=== PATIENT | female | born 1960 | race Caucasian/White ===

== ENCOUNTER 2017-09-29 15:35 | Emergency (ER) | payer MEDICARE, SELFPAY ==
[2017-09-29 15:52] VITALS: BP 170/113; PULSE 75; RESP 20; TEMP 36.6; O2SAT 95; BMI 30.9
--- NOTE | 2017-09-29 16:03 | HMH.EDUTC ---
[facility] [place] Clinical Impression: Otitis externa Qualifiers: Otitis externa type: unspecified type Chronicity: unspecified Laterality: right Qualified Code(s): H60.91 - Unspecified otitis externa, right ear Disposition: Home, Self-Care Condition on Discharge: Good Instructions: Otitis Externa, DI for Otitis Externa Additional Instructions: Use drops as prescribed Follow up with Family doctor if no improvement Make sure to wick drops into ear as shown in the [facility] today Over the counter Motrin or Tylenol as needed for fever or pain Follow up with Dr Barajas Return if needed Prescriptions: Ofloxacin [Floxin 0.3% OTIC Solution 5mL] 10 drops OT DAILY 7 Days #1 bottle Referrals: Jose Antonio Barajas MD [Physician] - Time of Disposition: 16:18 Medical Decision Making Vital Signs: 09/29/17 15:52 Temperature 97.9 F Temperature Source Temporal Artery Scan Pulse Rate [Brachial] 75 Respiratory Rate 20 Blood Pressure [Left Arm] 170/113 Blood Pressure Mean [Left Arm] 132 Blood Pressure Source [Left Arm] Automatic Cuff Blood Pressure Position [Left Arm] Sitting 02 Sat by Pulse Oximetry 95 Oxygen Delivery Method Room Air - Abner Inquiry Pt receiving controlled substance: No Abner was queried for this patient: No [facility] [place] - General Stated complaint: Right ear pain with drainage Mode of Arrival: Ambulatory Source of Information: Patient Limitations: No Limitations Description of Symptoms (Recalled from Triage Doc. by RN): RT EAR DRAINAGE AND PAIN X 2 WEEKS, FACE IS NOW HURTING HEENT Symptoms (Recalled from RN notes): Yes Resp Symptoms (Recalled from RN notes): No Skin Symptoms (Recalled from RN notes): No MS Symptoms (Recalled from RN notes): No Functional Status (Recalled from RN notes): NA - History of Present Illness Provider Complaint: Patient state that she has been having pain and swelling in her right ear that has continued to get worse over the last week State that she has had some drainage from the ear and it hurts when you touch it States that she has taken some Motrin but it has not helped so she came in to get checked out - Related Data Home Medications Medication Instructions Recorded Confirmed Carvedilol [Coreg 25mg Tablet] 25 mg PO BID 09/29/17 09/29/17 Previous Rx's Medication Instructions Recorded Ofloxacin [Floxin 0.3% OTIC 10 drops OT DAILY 7 Days #1 bottle 09/29/17 Solution 5mL] Allergies Allergy/AdvReac Type Severity Reaction Status Date / Time codeine [CODEINE] Allergy Mild Verified 09/29/17 15:56 - Worker's Comp Is this a Worker's Comp case?: No [facility] History I have reviewed the patient's past medical history: Yes - *Social History Smoking Status: Current every day smoker Alcohol Intake: never - Psychiatric History Expresses thoughts of harming self/others: None Suicide Plan Description: No Plan ROS Obtained: Yes All systems reviewed & no additional complaints Physical Exam - General General appearance: alert, in no apparent distress - Expanded ENT Exam External ear exam: Present: pain with movement, external tenderness, other (swelling of ear canal) TM/Canal exam: Right TM: canal discharge, canal tenderness - Respiratory Respiratory exam: Present: normal lung sounds bilaterally. Absent: respiratory distress - Cardiovascular Cardiovascular exam: Present: regular rate, normal rhythm. Absent: JVD - Neurological Exam Neurological exam: Present: alert, oriented X3
--- NOTE | 2017-09-29 16:12 | ED_ITS ---
[facility] [place]: Otitis externa Qualifiers: Otitis externa type: unspecified type Chronicity: unspecified Laterality: right Qualified Code(s): H60.91 - Unspecified otitis externa, right ear Disposition: Home, Self-Care Condition on Discharge: Good Instructions: Otitis Externa, DI for Otitis Externa Additional Instructions: Use drops as prescribed Follow up with Family doctor if no improvement Make sure to wick drops into ear as shown in the [facility] today Over the counter Motrin or Tylenol as needed for fever or pain Follow up with Dr Barajas Return if needed Prescriptions: Ofloxacin [Floxin 0.3% OTIC Solution 5mL] 10 drops OT DAILY 7 Days #1 bottle Referrals: Jose Antonio Barajas MD [Physician] - Time of Disposition: 16:18 Medical Decision Making Vital Signs: 09/29/17 15:52 Temperature 97.9 F Temperature Source Temporal Artery Scan Pulse Rate [Brachial] 75 Respiratory Rate 20 Blood Pressure [Left Arm] 170/113 Blood Pressure Mean [Left Arm] 132 Blood Pressure Source [Left Arm] Automatic Cuff Blood Pressure Position [Left Arm] Sitting 02 Sat by Pulse Oximetry 95 Oxygen Delivery Method Room Air - Abner Inquiry Pt receiving controlled substance: No Abner was queried for this patient: No [facility] [place] - General Stated complaint: Right ear pain with drainage Mode of Arrival: Ambulatory Source of Information: Patient Limitations: No Limitations Description of Symptoms (Recalled from Triage Doc. by RN): RT EAR DRAINAGE AND PAIN X 2 WEEKS, FACE IS NOW HURTING HEENT Symptoms (Recalled from RN notes): Yes Resp Symptoms (Recalled from RN notes): No Skin Symptoms (Recalled from RN notes): No MS Symptoms (Recalled from RN notes): No Functional Status (Recalled from RN notes): NA - History of Present Illness Provider Complaint: Patient state that she has been having pain and swelling in her right ear that has continued to get worse over the last week State that she has had some drainage from the ear and it hurts when you touch it States that she has taken some Motrin but it has not helped so she came in to get checked out - Related Data Home Medications Medication Instructions Recorded Confirmed Carvedilol [Coreg 25mg Tablet] 25 mg PO BID 09/29/17 09/29/17 Previous Rx's Medication Instructions Recorded Ofloxacin [Floxin 0.3% OTIC 10 drops OT DAILY 7 Days #1 bottle 09/29/17 Solution 5mL] Allergies Allergy/AdvReac Type Severity Reaction Status Date / Time codeine [CODEINE] Allergy Mild Verified 09/29/17 15:56 - Worker's Comp Is this a Worker's Comp case?: No [facility] History I have reviewed the patient's past medical history: Yes - *Social History Smoking Status: Current every day smoker Alcohol Intake: never - Psychiatric History Expresses thoughts of harming self/others: None Suicide Plan Description: No Plan ROS Obtained: Yes All systems reviewed & no additional complaints Physical Exam - General General appearance: alert, in no apparent distress - Expanded ENT Exam External ear exam: Present: pain with movement, external tenderness, other ( swelling of ear canal) TM/Canal exam: Right TM: canal discharge, canal tenderness - Respiratory Respiratory exam: Present: normal lung sounds bilaterally. Absent: respiratory distress
== END 2017-09-29 16:28 | disposition home or self-care (01) ==
PROVIDERS: Emergency Provider Nurse Practitioner; Family Provider Nurse Practitioner Family
DX: H60.91 Unspecified otitis externa, right ear (principal); Z88.6 Allergy status to analgesic agent
CPT/HCPCS: G0463; 99202

== ENCOUNTER → 2017-12-16 14:56 | Outpatient (CLI) | payer MEDICARE, SELFPAY ==
--- NOTE | 2017-12-16 15:16 | XR_ITS ---
EXAM: XR cervical spine 5V HISTORY: Neck pain with left arm numbness ORDERING PHYSICIAN: Elaine Toney PATIENT AGE: 57 years COMPARISON: None FINDINGS: There is fusion on the posterior elements of C2 and C3. There is normal alignment with slight reversal of upper cervical lordosis. The foramen at C2-C3 is slightly narrowed on both sides. The remaining cervical spine has an unremarkable appearance. No fracture or dislocation. No cervical ribs. 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
--- NOTE | 2017-12-16 15:16 | XR_ITS ---
XR shoulder LT min 2V HISTORY: Left shoulder pain and arm numbness ITS.REASON: NECK PAIN, LT ARM NUMBNESS AND ACUTE PAIN ORDERING PHYSICIAN: Elaine Toney PATIENT AGE: 57 years COMPARISON: None FINDINGS: There are mild osteoarthritic changes of the glenohumeral joint. No fracture or dislocation. No lytic or blastic change. IMPRESSION: Mild osteoarthritis of the left glenohumeral joint
== END ==
PROVIDERS: PCP Nurse Practitioner Family; Visit Provider Nurse Practitioner Family
DX: M54.2 Cervicalgia (principal); R20.0 Anesthesia of skin; M25.512 Pain in left shoulder
CPT/HCPCS: 72050; 73030

== ENCOUNTER → 2017-12-29 14:13 | Outpatient (CLI) | payer MEDICARE, SELFPAY ==
--- NOTE | 2017-12-29 14:17 | MR_ITS ---
MR cervical spine wo con, MR 3-d myelogram/MRCP HISTORY: Bilateral arm pain and numbness but worse in the left. Pain radiates into the chest. Neck pain. Headache. Loss of strength in Lt Arm. Symptoms x5yrs. ITS.REASON: CERVICALGIA, LEFT ARM NUMBNESS ORDERING PHYSICIAN: Annamarie Gibson PATIENT AGE: 57 years COMPARISON: Prior X-ray 12/16/2017 TECHNIQUE: Standard multiplanar multiecho sequences are performed without contrast. 3-D MIP and myelographic images are also rendered and reviewed FINDINGS: There is some image degradation patient motion artifact. There is normal alignment. The craniocervical junction has an unremarkable appearance. 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 C4-C5: Minimal central disc protrusion slightly toward the left versus prominent posterior longitudinal ligament without impingement. C5-C6: Unremarkable. C6-C7: Minimal bulging disc slightly eccentric towards the left without impingement. C7-T1: Unremarkable. IMPRESSION: 1. No canal stenosis or herniated disc. 2. Minimal bulging disc at C3-C4 and C6-7 with minimal central disc protrusion versus prominent posterior longitudinal ligament at C4-C5 IMPRESSION:
== END ==
PROVIDERS: Family Provider Nurse Practitioner Family; PCP Nurse Practitioner Family; Visit Provider Nurse Practitioner
DX: M54.2 Cervicalgia (principal); R20.0 Anesthesia of skin; Q76.1 Klippel-Feil syndrome
CPT/HCPCS: 72141; 76376

== ENCOUNTER → 2018-03-06 13:43 | Outpatient (POV) | payer MEDICARE, SELFPAY ==
[2018-03-06 14:09] VITALS: BP 199/98; PULSE 93; RESP 18; O2SAT 98
--- NOTE | 2018-03-07 09:12 | HMH.PMCON ---
Assessment and Plan (1) Degenerative disc disease, cervical Current visit: Yes Status: Chronic Category: Medical Code(s): M50.30 - Other cervical disc degeneration, unspecified cervical region (2) Cervical radiculopathy Current visit: Yes Status: Chronic Category: Medical Code(s): M54.12 - Radiculopathy, cervical region - Assessment and plan all Dx Assessment and Plan for all problems:: We will schedule C5-C6 cervical epidural steroid for the patient. Patient's tried and failed physical therapy, chiropractic therapy, anti-inflammatories, medications. Patient is not on any anticoagulation therapy. I will follow-up with the patient 2 weeks after her injection and we will reassess her symptoms at that time. This note was dictated using voice recognition software and may contain errors or omissions HPI - Data of Consult Consult date: 03/06/18 Requesting Physician: Alma Rosa Donovan APRN Primary Care Provider: Elaine Toney APRN Family Provider: Barb Higginbotham APRN - Consult Narrative Reason for consult: Neck pain History of present illness: Ms. Jamil is a 57 year old female who presents today for consultation in regards to her neck pain. Patient has neck pain that radiates into her left arm. Patient is wearing a bandage around her left arm today help decrease her pain. Patient states that she does not want to take medication and that she actually previous for drug addicts every day. Patient is interested in injections. Patient's been seen by neurosurgery and was deemed in non-surgical candidate. Patient has not had any epidural injections. Patient's tried and failed chiropractic therapy and physical therapy. Patient rates her pain an 8 out of 10. Patient states that she takes ibuprofen which is helpful. Patient states she has numbness in all fingers on her left hand. Patient does have a MRI showing a CT of his back is to be C5-C6 C6-C7 degenerative changes. Patient is not on any anticoagulation therapy. CC: Alma Rosa Donovan APRN [facility] History I have reviewed the patient's past medical history: Yes Medical History: Reports:: Anxiety, Chronic Obstructive Pulmonary Disease (COPD), Hypertension, Migraine Other Medical History: Reports: Arthritis, Fibromyalgia, Other Other Surgeries: Yes: Hysterectomy-Total, Tubal Ligation, Other Amputation: No Fractures: No - *Social History Smoking Status: Current every day smoker Tobacco Type: cigarettes # Packs/Day (cigarettes): 1 Alcohol Intake: never Substance Use Type: denies use Occupational Status: disabled Housing: house Household Members: spouse - Psychiatric History Expresses thoughts of harming self/others: None Suicide Plan Description: No Plan Pschychiatric History:: Reports:: Anxiety *Family Hx:: Cancer, Diabetes Review of Systems - Review of Systems ROS General: no recent weight change, no fever, no sleep disturbances Respiratory: no cough, no shortness of air, no recurring pulmonary infections Cardiovascular/Peripheral Vascular: No chest pain, No palpitations, no edema, no shortness of breath. Gastrointestinal: no incontinence, normal bowel movements reported Genitourinary: no incontinence Musculoskeletal: Neck pain, left arm pain Psychiatric: normal mood/ affect Neurological: [denies weakness in extremities], [denies balance issues] Meds Home Medications Medication Instructions Recorded Confirmed Type Carvedilol [Coreg 25mg Tablet] 25 mg PO BID 09/29/17 09/29/17 History budesonide-formoterol HFA 160 2 puff INHALATION Q12H 10/12/17 History mcg-4.5 mcg/actuation aerosol inhaler hydrochlorothiazide 12.5 mg tablet 12.5 mg PO QDAY 10/12/17 History lisinopril 10 mg tablet 5 mg PO QDAY 10/12/17 History Allergies Allergy/AdvReac Type Severity Reaction Status Date / Time codeine [CODEINE] Allergy Mild Verified 01/12/18 15:12 Objective Vital signs: Pulse Resp BP Pulse Ox 93 H
--- NOTE | 2018-03-07 09:16 | P.CONS_ITS ---
Assessment and Plan (1) Degenerative disc disease, cervical Current visit: Yes Status: Chronic Category: Medical Code(s): M50.30 - Other cervical disc degeneration, unspecified cervical region (2) Cervical radiculopathy Current visit: Yes Status: Chronic Category: Medical Code(s): M54.12 - Radiculopathy, cervical region - Assessment and plan all Dx Assessment and Plan for all problems:: We will schedule C5-C6 cervical epidural steroid for the patient. Patient's tried and failed physical therapy, chiropractic therapy, anti-inflammatories, medications. Patient is not on any anticoagulation therapy. I will follow-up with the patient 2 weeks after her injection and we will reassess her symptoms at that time. This note was dictated using voice recognition software and may contain errors or omissions HPI - Data of Consult Consult date: 03/06/18 Requesting Physician: Alma Rosa Donovan APRN Primary Care Provider: Elaine Toney APRN Family Provider: Barb Higginbotham APRN - Consult Narrative Reason for consult: Neck pain History of present illness: Ms. Jamil is a 57 year old female who presents today for consultation in regards to her neck pain. Patient has neck pain that radiates into her left arm. Patient is wearing a bandage around her left arm today help decrease her pain. Patient states that she does not want to take medication and that she actually previous for drug addicts every day. Patient is interested in injections. Patient's been seen by neurosurgery and was deemed in non-surgical candidate. Patient has not had any epidural injections. Patient's tried and failed chiropractic therapy and physical therapy. Patient rates her pain an 8 out of 10. Patient states that she takes ibuprofen which is helpful. Patient states she has numbness in all fingers on her left hand. Patient does have a MRI showing a CT of his back is to be C5-C6 C6-C7 degenerative changes. Patient is not on any anticoagulation therapy. CC: Alma Rosa Donovan APRN [facility] History I have reviewed the patient's past medical history: Yes Medical History: Reports:: Anxiety, Chronic Obstructive Pulmonary Disease (COPD) , Hypertension, Migraine Other Medical History: Reports: Arthritis, Fibromyalgia, Other Other Surgeries: Yes: Hysterectomy-Total, Tubal Ligation, Other Amputation: No Fractures: No - *Social History Smoking Status: Current every day smoker Tobacco Type: cigarettes # Packs/Day (cigarettes): 1 Alcohol Intake: never Substance Use Type: denies use Occupational Status: disabled Housing: house Household Members: spouse - Psychiatric History Expresses thoughts of harming self/others: None Suicide Plan Description: No Plan Pschychiatric History:: Reports:: Anxiety *Family Hx:: Cancer, Diabetes Review of Systems - Review of Systems ROS General: no recent weight change, no fever, no sleep disturbances Respiratory: no cough, no shortness of air, no recurring pulmonary infections Cardiovascular/Peripheral Vascular: No chest pain, No palpitations, no edema, no shortness of breath. Gastrointestinal: no incontinence, normal bowel movements reported Genitourinary: no incontinence Musculoskeletal: Neck pain, left arm pain Psychiatric: normal mood/ affect Neurological: [denies weakness in extremities], [denies balance issues] Meds Home Medications Medication Instructions Recorded Confirmed Type Carvedilol [Coreg 25mg Tablet] 25 mg PO BID 09/29/17 09/29/17 Histor
== END ==
PROVIDERS: Family Provider Nurse Practitioner Family; PCP Nurse Practitioner Family; Visit Provider Clinical Nurse Specialist Family Health
DX: M54.12 Radiculopathy, cervical region (principal); M50.30 Other cervical disc degeneration, unspecified cervical region
CPT/HCPCS: 99202

== ENCOUNTER → 2018-05-01 14:07 | Outpatient (POV) | payer MEDICARE, SELFPAY ==
[2018-05-01 14:36] VITALS: BP 198/87; PULSE 85; RESP 18; O2SAT 98; BMI 30.9
--- NOTE | 2018-05-01 14:43 | HMH.PAINSOAP ---
[facility] Pain Management SOAP Note Subjective:: Patient is a pleasant 57-year-old white female who we are treating for neck pain with radicular symptoms. Patient had a cervical epidural at C5-C6. Patient states that she had 90% relief for 4 weeks. Patient is doing well afterwards. Patient states she had a migraine and her pain returned. Patient rates her pain a 6 out of 10 today. Mostly in her neck and down her left arm. Patient has numbness and tingling in all of her fingers. ROS General: no recent weight change, no fever, no sleep disturbances Respiratory: no cough, no shortness of air, no recurring pulmonary infections Cardiovascular/Peripheral Vascular: No chest pain, No palpitations, no edema, no shortness of breath. Gastrointestinal: no incontinence, normal bowel movements reported Genitourinary: no incontinence Musculoskeletal: Neck pain, arm pain Psychiatric: normal mood/ affect Neurological: [denies weakness in extremities], [denies balance issues] Objective:: Physical Exam General: Alert and oriented x3, no acute distress, pleasant and cooperative, [on room air] Lungs: Resps E/U, Symmetrical chest expansion, Eyes: PERRL Musculoskeletal: Flexion and extension of cervical spine somewhat guarded secondary to pain, deep tendon reflexes normal, strength in upper and lower extremities [5/5],normal gait noted Neurological: speech clear, interactive media marketing specialist equal, no gross sensory deficits Assessment:: Degenerative disc disease of the cervical spine with cervical radiculopathy. Plan:: We will plan a C5-C6 cervical epidural steroid injection for the patient given the efficacy of her last one. I believe it would be beneficial. Patient is not on any anticoagulation therapy. Patient's tried and failed anti-inflammatories, medications, physical therapy and chiropractic therapy. I will follow-up with the patient after her injection. This note was dictated using voice recognition software and may contain errors or omissions
== END ==
PROVIDERS: Family Provider Nurse Practitioner Family; PCP Nurse Practitioner Family; Visit Provider Clinical Nurse Specialist Family Health
DX: M50.10 Cervical disc disorder with radiculopathy, unspecified cervical region (principal)
CPT/HCPCS: 99213

== ENCOUNTER → 2018-05-15 14:26 | Outpatient (CLI) | payer MEDICARE, SELFPAY ==
--- NOTE | 2018-05-15 14:32 | XR_ITS ---
EXAM: XR thoracic spine 3V HISTORY: ITS.REASON: THORACIC PAIN,LOW BACK PAIN Comparison: None FINDINGS: Normal alignment. No fracture or dislocation. There is mild multilevel degenerative disc disease in the midthoracic spine with small anterior osteophytes. IMPRESSION: Mild degenerative changes, no acute finding
--- NOTE | 2018-05-15 14:32 | XR_ITS ---
EXAM: XR lumbar spine min 4V HISTORY: Low back pain ITS.REASON: THORACIC PAIN,LOW BACK PAIN ORDERING PHYSICIAN: Elaine Toney PATIENT AGE: 58 years COMPARISON: None FINDINGS: Normal alignment. No fracture or dislocation. No lytic or blastic change. Small anterior osteophytes are present from L2 to L5. The disc spaces are well-preserved. IMPRESSION: Mild degenerative changes, no acute finding
== END ==
PROVIDERS: PCP Nurse Practitioner Family; Visit Provider Nurse Practitioner Family
DX: M54.6 Pain in thoracic spine (principal); M54.5 Low back pain
CPT/HCPCS: 72072; 72110

== ENCOUNTER → 2018-06-06 10:59 | Outpatient (POV) | payer MEDICARE, SELFPAY ==
[2018-06-06 11:05] VITALS: BP 207/116; PULSE 73; RESP 16; TEMP 36.2; O2SAT 98; BMI 31.8
--- NOTE | 2018-06-06 11:53 | HMH.PAINSOAP ---
[facility] Pain Management SOAP Note Subjective:: Patient is a pleasant 58-year-old white female who presents today for follow-up after her second cervical epidural steroid injection. Patient states she got 80-90% relief for several weeks. Patient would like to finish off the series of 3 epidurals. Patient states that her pain has returned in her lower neck and down her left arm. Patient has not tried any medications. Patient and I discussed trying Cymbalta. Patient is interested in this. She rates her pain today a 6 out of 10. ROS General: no recent weight change, no fever, no sleep disturbances Respiratory: no cough, no shortness of air, no recurring pulmonary infections Cardiovascular/Peripheral Vascular: No chest pain, No palpitations, no edema, no shortness of breath. Gastrointestinal: no incontinence, normal bowel movements reported Genitourinary: no incontinence Musculoskeletal: Neck pain, arm pain Psychiatric: normal mood/ affect Neurological: [denies weakness in extremities], [denies balance issues] Objective:: Physical Exam General: Alert and oriented x3, no acute distress, pleasant and cooperative, [on room air] Lungs: Resps E/U, Symmetrical chest expansion, Eyes: PERRL Musculoskeletal: Flexion and extension of cervical spine somewhat guarded secondary to pain, deep tendon reflexes normal, strength in upper and lower extremities [5/5], normal gait noted Neurological: speech clear, petroleum products district supervisor equal, no gross sensory deficits Assessment:: Degenerative disc disease of the cervical spine with cervical radiculopathy Plan:: We will schedule a C5-C6 cervical epidural steroid injection. Patient is not on any anticoagulation therapy. Patient is continuing a home stretching exercise program. Patient will also be called in Cymbalta 60 mg 1 p.o. daily. Patient has been instructed to call the office if she has any issues with this medication. I will follow-up with the patient after her injection. This note was dictated using voice recognition software and may contain errors or omissions
== END ==
PROVIDERS: Family Provider Nurse Practitioner Family; PCP Nurse Practitioner Family; Visit Provider Clinical Nurse Specialist Family Health
DX: M50.10 Cervical disc disorder with radiculopathy, unspecified cervical region (principal)
CPT/HCPCS: 99213

== ENCOUNTER → 2018-06-13 10:20 | Outpatient (POV) | payer MEDICARE, SELFPAY ==
--- NOTE | 2018-06-13 10:39 | HMH.PAINSOAP ---
[facility] [place] Pain Management SOAP Note Subjective:: Patient is a pleasant 58-year-old white female who presents today for follow-up. Patient was put on Cymbalta at her last visit however she states she was unable to tolerate it. Patient states she got quite sick. Patient is not having any side effects at this time and has quit taking the medication. Patient is scheduled for C5-C6 cervical epidural steroid injection. Patient states she gets her life back after these injections. Patient is having some high blood pressure she currently is at 188/109. Patient states she has been getting different medication from her family physician. Patient is to return to discuss this. ROS General: no recent weight change, no fever, no sleep disturbances Respiratory: no cough, no shortness of air, no recurring pulmonary infections Cardiovascular/Peripheral Vascular: No chest pain, No palpitations, no edema, no shortness of breath. Gastrointestinal: no incontinence, normal bowel movements reported Genitourinary: no incontinence Musculoskeletal: Neck pain Psychiatric: normal mood/ affect Neurological: [denies weakness in extremities], [denies balance issues] Objective:: Physical Exam General: Alert and oriented x3, no acute distress, pleasant and cooperative, [on room air] Lungs: Resps E/U, Symmetrical chest expansion, Eyes: PERRL Musculoskeletal: Flexion and extension of cervical spine somewhat guarded secondary to pain, deep tendon reflexes normal, strength in upper and lower extremities [5/5], slightly antalgic gait noted Neurological: speech clear, program schedule clerk equal, no gross sensory deficits Assessment:: Degenerative disc disease of the cervical spine with cervical radiculopathy Plan:: We will discontinue the Cymbalta and see the patient back for cervical C5-C6 epidural injection. Patient is to follow-up with her primary care in regards to her high blood pressure. I will follow-up with the patient after her injection. This note was dictated using voice recognition software and may contain errors or omissions
[2018-06-13 10:40] VITALS: BP 188/109; PULSE 80; RESP 18; O2SAT 97; BMI 30.9
== END ==
PROVIDERS: Family Provider Nurse Practitioner Family; PCP Nurse Practitioner Family; Visit Provider Clinical Nurse Specialist Family Health
DX: M50.10 Cervical disc disorder with radiculopathy, unspecified cervical region (principal)
CPT/HCPCS: 99213

== ENCOUNTER → 2018-06-29 14:27 | Outpatient (CLI) | payer MEDICARE, SELFPAY ==
--- NOTE | 2018-06-29 14:34 | XR_ITS ---
XR hip RT 2-3V w/pelvis Ordering Physician: Elaine Toney Patient Age: 58 years: Female HISTORY: ITS.REASON: RT HIP AND LOW BACK PAIN TECHNIQUE: AP frog-leg view right hip AP pelvis included COMPARISON :CT abdomen pelvis from May 2014. RIGHT HIP The right hip is intact with no fracture evident. Normal symmetrical appearance of the right femoral head and neck. Joint spaces well-maintained. The pelvis is intact SI joints sacrum unremarkable. Femoral head normal contour and density. AP osseous pelvis intact & unremarkable IMPRESSION: \ AP pelvis intact Right hip intact.
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
== END ==
PROVIDERS: PCP Nurse Practitioner Family; Visit Provider Nurse Practitioner Family
DX: M25.551 Pain in right hip (principal); M54.5 Low back pain
CPT/HCPCS: 72110; 73502

== ENCOUNTER → 2018-07-24 14:59 | Outpatient (POV) | payer MEDICARE, SELFPAY ==
[2018-07-24 15:33] VITALS: BP 175/79; PULSE 74; RESP 18; O2SAT 98; BMI 33.3
--- NOTE | 2018-07-25 07:56 | HMH.PAINSOAP ---
[facility] Pain Management SOAP Note Subjective:: Patient is a pleasant 58-year-old white female who presents today for follow-up after cervical epidural steroid injection. Patient states she is doing much better she rates her pain today a 4 out of 10. Patient states that she is about 85% improved since her last cervical epidural steroid injection. Patient is having a lot of right hip pain and had a right hip x-ray and pelvis x-ray. There was no fracture or anything remarkable noted on this. Patient is interested in continuing with her cervical epidural to finish out her series of 3 epidurals. ROS General: no recent weight change, no fever, no sleep disturbances Respiratory: no cough, no shortness of air, no recurring pulmonary infections Cardiovascular/Peripheral Vascular: No chest pain, No palpitations, no edema, no shortness of breath. Gastrointestinal: no incontinence, normal bowel movements reported Genitourinary: no incontinence Musculoskeletal: Neck pain Psychiatric: normal mood/ affect Neurological: [denies weakness in extremities], [denies balance issues] Objective:: Physical Exam General: Alert and oriented x3, no acute distress, pleasant and cooperative, [on room air] Lungs: Resps E/U, Symmetrical chest expansion, Eyes: PERRL Musculoskeletal: Flexion and extension of cervical spine somewhat guarded secondary to pain, deep tendon reflexes normal, strength in upper and lower extremities [5/5], antalgic gait noted Neurological: speech clear, community health coordinator equal, no gross sensory deficits Assessment:: Degenerative disc disease cervical spine with cervical radiculopathy Plan:: We will schedule C5-C6 cervical epidural steroid injection for the patient given the efficacy of the last time I believe it would be beneficial. Patient has tried and failed other modalities of treatment. Patient is continuing a home stretching regimen. Patient is not on any anticoagulation therapy. I will follow-up with her after her injection. This note was dictated using voice recognition software and may contain errors or omissions
== END ==
PROVIDERS: PCP Nurse Practitioner Family; Visit Provider Clinical Nurse Specialist Family Health
DX: M50.10 Cervical disc disorder with radiculopathy, unspecified cervical region (principal)
CPT/HCPCS: 99213

== ENCOUNTER → 2018-07-27 14:46 | Outpatient (CLI) | payer MEDICARE, SELFPAY ==
--- NOTE | 2018-07-27 14:56 | XR_ITS ---
XR KUB HISTORY: ITS.REASON: RIGHT FLANK PAIN ORDERING PHYSICIAN: Elaine Toney PATIENT AGE: 58 years COMPARISON: None FINDINGS: The bowel gas pattern is unremarkable. No obvious obstruction.. No abnormal calcifications are evident. No obvious renal or ureteral calculi.. No acute bony anomalies evident. There are multiple pelvic phleboliths. No obvious renal or ureteral calculi. IMPRESSION: Negative KUB, no acute finding
== END ==
PROVIDERS: PCP Nurse Practitioner Family; Visit Provider Nurse Practitioner Family
DX: R10.9 Unspecified abdominal pain (principal)
CPT/HCPCS: 74018

== ENCOUNTER → 2018-08-29 11:32 | Outpatient (POV) | payer MEDICARE, SELFPAY ==
[2018-08-29 12:18] VITALS: BP 166/77; PULSE 76; RESP 18; O2SAT 98; BMI 30.9
--- NOTE | 2018-08-29 13:01 | HMH.PAINSOAP ---
[facility] Pain Management SOAP Note Subjective:: Patient is a pleasant 58-year-old white female who presents today for follow-up after cervical epidural steroid injection. Patient states her pain in her neck is 3 out of 10 and is doing well. Her overall pain is a 6 out of 10 but that is mostly in her bones patient is not on any arthritic medication we discussed adding some diclofenac to her regimen. ROS General: no recent weight change, no fever, no sleep disturbances Respiratory: no cough, no shortness of air, no recurring pulmonary infections Cardiovascular/Peripheral Vascular: No chest pain, No palpitations, no edema, no shortness of breath. Gastrointestinal: no incontinence, normal bowel movements reported Genitourinary: no incontinence Musculoskeletal: Generalized pain Psychiatric: normal mood/ affect Neurological: [denies weakness in extremities], [denies balance issues] Objective:: Physical Exam General: Alert and oriented x3, no acute distress, pleasant and cooperative, [on room air] Lungs: Resps E/U, Symmetrical chest expansion, Eyes: PERRL Musculoskeletal: Flexion and extension of cervical spine somewhat guarded secondary to pain, deep tendon reflexes normal, strength in upper and lower extremities [5/5], antalgic gait noted Neurological: speech clear, livestock agent equal, no gross sensory deficits Assessment:: Degenerative 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 We will call in diclofenac 75 mg 1 p.o. twice daily and give her 2 months worth of medication. Patient's been instructed to call the office if she has any issues prior to her next appointment. This note was dictated using voice recognition software and may contain errors or omissions
--- NOTE | 2018-08-29 13:04 | P.CONS_ITS ---
[facility] Pain Management SOAP Note Subjective:: Patient is a pleasant 58-year-old white female who presents today for follow-up after cervical epidural steroid injection. Patient states her pain in her neck is 3 out of 10 and is doing well. Her overall pain is a 6 out of 10 but that is mostly in her bones patient is not on any arthritic medication we discussed adding some diclofenac to her regimen. ROS General: no recent weight change, no fever, no sleep disturbances Respiratory: no cough, no shortness of air, no recurring pulmonary infections Cardiovascular/Peripheral Vascular: No chest pain, No palpitations, no edema, no shortness of breath. Gastrointestinal: no incontinence, normal bowel movements reported Genitourinary: no incontinence Musculoskeletal: Generalized pain Psychiatric: normal mood/ affect Neurological: [denies weakness in extremities], [denies balance issues] Objective:: Physical Exam General: Alert and oriented x3, no acute distress, pleasant and cooperative, [on room air] Lungs: Resps E/U, Symmetrical chest expansion, Eyes: PERRL Musculoskeletal: Flexion and extension of cervical spine somewhat guarded secondary to pain, deep tendon reflexes normal, strength in upper and lower extremities [5/5], antalgic gait noted Neurological: speech clear, daytime caregiver equal, no gross sensory deficits Assessment:: Degenerative 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 We will call in diclofenac 75 mg 1 p.o. twice daily and give her 2 months worth of medication. Patient's been instructed to call the office if she has any issues prior to her next appointment. This note was dictated using voice recognition software and may contain errors or omissions
== END ==
PROVIDERS: PCP Nurse Practitioner; Visit Provider Clinical Nurse Specialist Family Health
DX: M50.10 Cervical disc disorder with radiculopathy, unspecified cervical region (principal); M19.90 Unspecified osteoarthritis, unspecified site
CPT/HCPCS: 99213

== ENCOUNTER → 2018-09-25 13:58 | Outpatient (POV) | payer MEDICARE, SELFPAY ==
--- NOTE | 2018-09-25 14:20 | HMH.PAINSOAP ---
[facility] Pain Management SOAP Note Subjective:: Is a pleasant 58-year-old white female who presents today for follow-up. Patient states that she has been taking her diclofenac with side effects. Patient states that this is not helping that much she rates her pain a 7 out of 10 today. Patient would like to know she can continue on her cyclobenzaprine from her primary care physician. I discussed that with her and needed that she could. Patient states that she would like to have another injection however he is having insurance issues at this time. Patient also wanted to discuss potentially using CBD oil. ROS General: no recent weight change, no fever, no sleep disturbances Respiratory: no cough, no shortness of air, no recurring pulmonary infections Cardiovascular/Peripheral Vascular: No chest pain, No palpitations, no edema, no shortness of breath. Gastrointestinal: no incontinence, normal bowel movements reported Genitourinary: no incontinence Musculoskeletal: Generalized pain, neck pain Psychiatric: normal mood/ affect Neurological: [denies weakness in extremities], [denies balance issues] Objective:: Physical Exam General: Alert and oriented x3, no acute distress, pleasant and cooperative, [on room air] Lungs: Resps E/U, Symmetrical chest expansion, Eyes: PERRL Musculoskeletal: Flexion and extension of cervical spine somewhat guarded secondary to pain, deep tendon reflexes normal, strength in upper and lower extremities [5/5], [abnormal gait noted] Neurological: speech clear, office technology professor equal, no gross sensory deficits Assessment:: Degenerative cervical spine cervical radiculopathy, arthritis Plan:: We will schedule a C5-C6 cervical epidural steroid injection for the patient after she has straightened out her insurance. I will follow-up with the patient after this. This note was dictated using voice recognition software and may contain errors or omissions
[2018-09-25 14:29] VITALS: BP 156/98; PULSE 75; RESP 18; O2SAT 98; BMI 30.1
--- NOTE | 2018-09-25 14:33 | P.CONS_ITS ---
[facility] Pain Management SOAP Note Subjective:: Is a pleasant 58-year-old white female who presents today for follow-up. Patient states that she has been taking her diclofenac with side effects. Patient states that this is not helping that much she rates her pain a 7 out of 10 today. Patient would like to know she can continue on her cyclobenzaprine from her primary care physician. I discussed that with her and needed that she could. Patient states that she would like to have another injection however he is having insurance issues at this time. Patient also wanted to discuss potentially using CBD oil. ROS General: no recent weight change, no fever, no sleep disturbances Respiratory: no cough, no shortness of air, no recurring pulmonary infections Cardiovascular/Peripheral Vascular: No chest pain, No palpitations, no edema, no shortness of breath. Gastrointestinal: no incontinence, normal bowel movements reported Genitourinary: no incontinence Musculoskeletal: Generalized pain, neck pain Psychiatric: normal mood/ affect Neurological: [denies weakness in extremities], [denies balance issues] Objective:: Physical Exam General: Alert and oriented x3, no acute distress, pleasant and cooperative, [on room air] Lungs: Resps E/U, Symmetrical chest expansion, Eyes: PERRL Musculoskeletal: Flexion and extension of cervical spine somewhat guarded secondary to pain, deep tendon reflexes normal, strength in upper and lower extremities [5/5], [abnormal gait noted] Neurological: speech clear, meat grinder equal, no gross sensory deficits Assessment:: Degenerative cervical spine cervical radiculopathy, arthritis Plan:: We will schedule a C5-C6 cervical epidural steroid injection for the patient after she has straightened out her insurance. I will follow-up with the patient after this. This note was dictated using voice recognition software and may contain errors or omissions
== END ==
PROVIDERS: PCP Nurse Practitioner Family; Visit Provider Clinical Nurse Specialist Family Health
DX: M50.10 Cervical disc disorder with radiculopathy, unspecified cervical region (principal); M19.90 Unspecified osteoarthritis, unspecified site
CPT/HCPCS: 99213

== ENCOUNTER → 2018-10-26 08:56 | Outpatient (CLI) | payer MEDICARE, SELFPAY ==
[2018-10-26 09:17] LABS: Blood Urea Nitrogen 12 mg/dL (7-18); Creatinine,Serum 0.91 mg/dL (0.55-1.02); Estimated Glomerular Filt Rate 63 ml/min (>60); GFR (African American) 76 ML/MIN (>60)
--- NOTE | 2018-10-26 09:37 | CT_ITS ---
CT abdomen pelvis w con INDICATION: Bilateral flank pain left renal cyst. ITS.REASON: FLANK PAIN CYST LEFT KIDNEY ORDERING PHYSICIAN: Elaine Toney PATIENT AGE: 58 years COMPARISON: CT abdomen pelvis June 07, 2014. . TECHNIQUE: 75 cc Optiray contrast IV contrast. Utilized. . Also Redicat oral enteric contrast utilized Axial images obtained with sagittal and coronal reformats. All CT scans at the facility use one or more dose reduction, viz: automated exposure control, ma/kV adjustment per patient size (including targeted exams where dose is matched to indication, i.e. head), or iterative reconstruction technique. FINDINGS: The lung bases are clear.. No active disease. Heart normal size. Abdomen/pelvis. Liver. Mild diffuse fatty changes, with minimal sparing about the gallbladder fossa as seen on previous 2014 exam. No enhancing mass or lesion. . Pancreas. No significant findings. No significant change. Spleen unremarkable. Adrenals unremarkable. Gallbladder. Suspect sludge. No definitive calcified stones.. Common duct unremarkable. TRACT Kidneys. No urinary tract calculi nor obstruction Right kidney. Small 1 cm debris filled cyst anterior aspect upper pole fairly stable since 2014. Can be followed. Left kidney: Just less than 1 cm cyst posterior aspect mid left kidney similar to 2014 .Ureters appear satisfactory. On nor obstruction. No calculi mild extrinsic compression of the ureters is a cross the iliac vessels bilaterally. Pelvis. Hysterectomy. Uterus removed no adnexal masses. Phleboliths pelvic basin. Urinary bladder is empty and contracted for this can, unremarkable. GI TRACT. . Large bowel generous stool is seen throughout the entire colon. Diverticulosis most extensive at sigmoid colon with a few diverticuli at the left colon. No good evidence of diverticulitis. Normal ileum appears normal. No evidence of appendicitis. No free fluid free air in the abdomen or pelvis.No acute inflammatory changes abdomen or pelvis No hernia evident. No retroperitoneal nor mesenteric nor pelvic adenopathy or mass. Aorta normal caliber minimal atherosclerotic calcifications. Osseous. Again note generous diffuse disc bulge at L4/5 most indenting anterior aspect of thecal sac and encroach upon the neural foramen. This is similar to 2014 if not very slightly more pronounced. Disc bulge also states L3/4 and thus the L2/3. Moderate facet arthropathy most evident at L5/S1 followed by L4/5. . IMPRESSION: ------ 1. No acute findings abdomen or pelvis. 2. No urinary tract calculi or obstruction . Small bilateral renal cysts which are similar to 2014.. 3. Colonic diverticulosis. Most pronounced at sigmoid followed by left colon Upper normal wall thickness proximal sigmoid colon. Consider colonoscopy if patient has not had such within the past 7-8 years 4. Diffuse fatty changes in liver. Probable minimal sludge in gallbladder. No calcified stones
--- NOTE | 2018-10-26 10:00 | HMH.ITSHM ---
Current Home Medications as stated by this patient Elida Jamil or artist's representative. []CARVEDILOL,HCTZ,TRAMADOL,CYCLODEN KATHY
== END ==
PROVIDERS: Visit Provider Nurse Practitioner Family
DX: R10.9 Unspecified abdominal pain (principal); N28.1 Cyst of kidney, acquired
CPT/HCPCS: 36415; 74177; 82565; 84520

== ENCOUNTER → 2018-11-27 11:03 | Outpatient (POV) | payer MEDICARE, SELFPAY ==
[2018-11-27 11:14] VITALS: BP 154/91; PULSE 77; RESP 18; O2SAT 98; BMI 41.6
--- NOTE | 2018-11-27 11:40 | XR_ITS ---
XR shoulder LT min 2V HISTORY: ITS.REASON: LEFT SHOULDER PAIN ORDERING PHYSICIAN: Alma Rosa Donovan PATIENT AGE: 58 years Comparison: 12/16/2017 FINDINGS: There are mild osteoarthritic changes of the glenohumeral joint with bony spurring along the inferior aspect of the humeral head. No fracture or dislocation. No lytic or blastic change. IMPRESSION: Mild osteoarthritis with spurring along the inner aspect of the humeral head which is slightly more prominent compared to the previous exam
--- NOTE | 2018-11-27 12:17 | P.CONS_ITS ---
[facility] Pain Management SOAP Note Subjective:: Patient is a pleasant 58-year-old white female who we are treating for neck and shoulder pain. Patient states that her neck is doing better however she is continually having chest pain along with radiation into her left side of her face and down her left arm. Patient has not seen a cafeteria table attendant recently. I believe that would be beneficial. Patient does have known blockages. Patient also has no imaging of her left shoulder I believe it would be valuable to get an x-ray. She rates her pain a 7 out of 10. Patient also going to be setting up a colonoscopy. ROS General: no recent weight change, no fever, no sleep disturbances Respiratory: no cough, no shortness of air, no recurring pulmonary infections Cardiovascular/Peripheral Vascular: No chest pain, No palpitations, no edema, no shortness of breath. Gastrointestinal: no incontinence, normal bowel movements reported Genitourinary: no incontinence Musculoskeletal: Neck pain, left shoulder pain, left chest wall pain Psychiatric: normal mood/ affect Neurological: [denies weakness in extremities], [denies balance issues] Objective:: Physical Exam General: Alert and oriented x3, no acute distress, pleasant and cooperative, [on room air] Lungs: Resps E/U, Symmetrical chest expansion, Eyes: PERRL Musculoskeletal: Flexion and extension of cervical spine somewhat guarded secondary to pain, deep tendon reflexes normal, strength in upper and lower extremities [5/5], [abnormal gait noted] Neurological: speech clear, lot attendant equal, no gross sensory deficits Assessment:: Degenerative disc disease cervical spine with cervical radiculopathy and left shoulder pain Plan:: Patient is currently not having any chest pain. I did recommend she make an appointment with her cafeteria table attendant and we will ensure she has one prior to her leaving. Patient will go for a left shoulder x-ray. I will follow-up with patient after her cafeteria table attendant visit reassess her symptoms at that time. She is been instructed to call the office if she has any issues prior to next appointment. Dr. Veliz has reviewed this note and agrees with this plan of care. This note was dictated using voice recognition software and may contain errors or omissions
== END ==
PROVIDERS: PCP Nurse Practitioner Family; Visit Provider Clinical Nurse Specialist Family Health
DX: M50.10 Cervical disc disorder with radiculopathy, unspecified cervical region (principal); M25.512 Pain in left shoulder
CPT/HCPCS: 73030; 99213

== ENCOUNTER → 2018-12-13 10:56 | Outpatient (CLI) | payer MEDICARE, SELFPAY ==
--- NOTE | 2018-12-13 11:00 | CA_ITS ---
PROCEDURE: 2-D M-mode and color Doppler study INDICATIONS FOR THE TEST: Chest pain+ COPD+ Heart Murmur Tobacco Smoking+ Palpitations+ Fatigue+ Syncope Edema Hypertension+Diabetes Mellitus Rheumatic Fever SOB+LUCIO+Obesity Hyperlipidemia Family History HD Additional History lt arm pain, dizziness, migraines PATIENT INFORMATION HEIGHT: 63 WEIGHT: 196 GENDER: Female B/P: 158/94 2-D/M-MODE INTERPRETATION: 2-D MEASUREMENTS OBSERVED VALUES IN CMS Right Ventricular Dimension (RVDd) 1.7 Interventricular Septum (Thickness)(IVsd) 0.9 Left Ventricular Internal Dimensions(LVIDd) 3.4 Left Ventricular Posterior Wall (Thickness)(LVPWd) 0.8 Aortic Root 2.5 Aortic Cusp Separation 1.9 Left Atrial Dimensions (LAD) 3.3 2D 1. Left atrium is normal size, left ventricle is normal size, there is no concentric left ventricular hypertrophy, visually estimated ejection fraction 55% with no regional wall motion abnormality. 2. The right atrium and right ventricle are normal size and contractility. 3. The aortic valve is minimally thickened and fibrosed. 4. The mitral and tricuspid valvular grossly normal. 5. The pulmonic valve is poorly visualized. 6. No significant pericardial effusion noted. DOPPLER INTERROGATION: Doppler interrogation of the aortic, mitral and tricuspid valvular presence of mild mitral and tricuspid regurgitation, tricuspid regurgitation jet velocity is inadequate for calculation of the right ventricular systolic pressure, diastolic parameters are within normal range. CONCLUSION: 1. Normal left ventricular size, preserved left ventricular systolic function, visually estimated ejection fraction 55% with no regional wall motion abnormality, diastolic parameters are within normal range. 2. Mild mitral and tricuspid regurgitation 3. No significant pericardial effusion noted.
--- NOTE | 2018-12-13 12:07 | NM_ITS ---
CARDIOLITE SPECT MYOCARDIAL PERFUSION LEXISCAN, REST AND STRESS: History: Hypertension, tobacco use, family history, chest pain, shortness of breath and fatigue Procedure: Patient received a 0.4 mg of intravenous Lexiscan, resting heart rate was 62 bpm resting blood pressure 176/94, with Lexiscan maximum heart rate achieved was 98 bpm which is less than 85% of the maximum] heart rate and a blood pressure was 167/98. With Lexiscan patient, shortness of breath and malaise Electrocardiogram: Resting electrocardiogram showed sinus rhythm, with Lexiscan there is less than 1.[address] segment depression noted from the baseline EKG. The EKG portion of the Lexiscan Myoview is nondiagnostic. Cardiac stress and resting SPECT images: Stress and resting SPECT images were obtained using technetium 99 Myoview 31.7 mCi at stress and 10.7 mCi at rest. Gated SPECT further analysis of segmental wall motion and calculation of the ejection fraction also done. Cardiac stress and resting SPECT images show uniform myocardial activity without segmental perfusion abnormality, computer derived ejection fraction is 65% with no regional wall motion abnormality, right ventricle is normal size and contractility. Conclusion: 1. The EKG portion of the Lexiscan Myoview is nondiagnostic. 2. No scintigraphic evidence of reversible ischemia seen, computer derived ejection fraction is 65% with no regional wall motion abnormality, right ventricle is normal size and contractility. 3. Normal Lexiscan Myoview study.
--- NOTE | 2018-12-13 14:04 | HMH.ITSHM ---
Current Home Medications as stated by this patient Elida Jamil or sales representative. []metoprolol omeprazole losartan
== END ==
PROVIDERS: PCP Family Medicine; Visit Provider Internal Medicine Cardiovascular Disease
DX: F17.200 Nicotine dependence, unspecified, uncomplicated (principal); J44.9 Chronic obstructive pulmonary disease, unspecified; R06.09 Other forms of dyspnea; R07.9 Chest pain, unspecified; R68.84 Jaw pain; M79.602 Pain in left arm
CPT/HCPCS: 78452; 93017; 93306; A9502; J2785

== ENCOUNTER → 2019-01-01 14:37 | Outpatient (POV) | payer MEDICARE, MEDICAID, SELFPAY ==
[2019-01-01 15:02] VITALS: BP 149/82; PULSE 76; RESP 18; O2SAT 98; BMI 32.4
--- NOTE | 2019-01-02 08:01 | P.CONS_ITS ---
[facility] Pain Management SOAP Note Subjective:: Is a pleasant 58-year-old white female who presents today for follow-up. Patient states she is having worsening neck pain rating it a 6 out of 10 mostly on the left side. She also states that she has pain radiating into her shoulder blades. Patient is wanting to move forward with another injection. She is done well with these in the past. Patient and I discussed potential trigger point injection she is interested in moving forward with this. ROS General: no recent weight change, no fever, no sleep disturbances Respiratory: no cough, no shortness of air, no recurring pulmonary infections Cardiovascular/Peripheral Vascular: No chest pain, No palpitations, no edema, no shortness of breath. Gastrointestinal: no incontinence, normal bowel movements reported Genitourinary: no incontinence Musculoskeletal: Myofascial pain Psychiatric: normal mood/ affect Neurological: [denies weakness in extremities], [denies balance issues] Objective:: Physical Exam General: Alert and oriented x3, no acute distress, pleasant and cooperative, [on room air] Lungs: Resps E/U, Symmetrical chest expansion, Eyes: PERRL Musculoskeletal: Flexion and extension of cervical spine somewhat guarded secondary to pain, deep tendon reflexes normal, strength in upper and lower extremities [5/5], [abnormal gait noted] palpable trigger points cervical paraspinous and bilateral trapezius Neurological: speech clear, education faculty member equal, no gross sensory deficits Assessment:: Myofascial pain syndrome, degenerative disc disease\cervical pain with cervical radiculopathy Plan:: We will set the patient up for trigger point injections of the bilateral cervical paraspinous along with trigger point injections of bilateral trapezius muscles Dr. Veliz has reviewed this note and agrees with this plan of care. This note was dictated using voice recognition software and may contain errors or omissions
== END ==
PROVIDERS: PCP Nurse Practitioner Family; Visit Provider Clinical Nurse Specialist Family Health
DX: M79.18 Myalgia, other site (principal); M50.10 Cervical disc disorder with radiculopathy, unspecified cervical region
CPT/HCPCS: 99212

== ENCOUNTER → 2019-02-16 13:47 | Outpatient (CLI) | payer MEDICARE, MEDICAID, SELFPAY ==
--- NOTE | 2019-02-16 13:52 | XR_ITS ---
XR chest AP HISTORY: ITS.REASON: BRONCHOPNEUMONIA ORDERING PHYSICIAN: Elaine Toney APRN PATIENT AGE: 58 years COMPARISON: 06/14/2017 FINDINGS: The cardiomediastinal silhouette and pulmonary vascularity are within normal limits. Patchy density is noted over the lingula and may be due to an area of wispy infiltrate. There are degenerative changes in the shoulders on both sides. A calcified granuloma is present in the right upper lobe. IMPRESSION: Patchy infiltrate in the lingula
== END ==
PROVIDERS: PCP Nurse Practitioner Family; Visit Provider Nurse Practitioner Family
DX: J18.0 Bronchopneumonia, unspecified organism (principal)
CPT/HCPCS: 71045

== ENCOUNTER → 2019-03-12 14:11 | Outpatient (POV) | payer MEDICARE, MEDICAID, SELFPAY ==
[2019-03-12 14:36] VITALS: BP 180/85; PULSE 78; RESP 18; O2SAT 99; BMI 33.3
--- NOTE | 2019-03-12 14:56 | HMH.PAINSOAP ---
[facility] Pain Management SOAP Note Subjective:: Patient is a pleasant 58-year-old white female who presents today for follow-up after trigger point injections to cervical paraspinous and upper trapezius muscles. The patient reports that she had 90% relief with this. Following the injections, she did develop pneumonia after her injection. Patient rates her pain today a 7 out of 10. Patient is interested in getting some trigger points for her cervical paraspinous and trapezius. She states this gives her significant relief. ROS General: no recent weight change, no fever, no sleep disturbances Respiratory: no cough, no shortness of air, no recurring pulmonary infections Cardiovascular/Peripheral Vascular: No chest pain, No palpitations, no edema, no shortness of breath. Gastrointestinal: no incontinence, normal bowel movements reported Genitourinary: no incontinence Musculoskeletal: Myofascial pain syndrome Psychiatric: normal mood/ affect Neurological: [denies weakness in extremities], [denies balance issues] Objective:: Physical Exam General: Alert and oriented x3, no acute distress, pleasant and cooperative, [on room air] Lungs: Resps E/U, Symmetrical chest expansion, Eyes: PERRL Musculoskeletal: Flexion and extension of cervical spine somewhat guarded secondary to pain, deep tendon reflexes normal, strength in upper and lower extremities [5/5], [abnormal gait noted] palpable trigger points cervical paraspinous bilateral trapezius Neurological: speech clear, mobile application development lead equal, no gross sensory deficits Assessment:: Myofascial pain syndrome Plan:: We will schedule her for bilateral trigger points of cervical paraspinous and trapezius muscles. Patient's been instructed to call the office if she has any issues prior to her next appointment. Dr. Veliz has reviewed this note and agrees with this plan of care. This note was dictated using voice recognition software and may contain errors or omissions
--- NOTE | 2019-03-12 15:00 | P.CONS_ITS ---
[facility] Pain Management SOAP Note Subjective:: Patient is a pleasant 58-year-old white female who presents today for follow-up after trigger point injections to cervical paraspinous and upper trapezius muscles. The patient reports that she had 90% relief with this. Following the injections, she did develop pneumonia after her injection. Patient rates her pain today a 7 out of 10. Patient is interested in getting some trigger points for her cervical paraspinous and trapezius. She states this gives her significant relief. ROS General: no recent weight change, no fever, no sleep disturbances Respiratory: no cough, no shortness of air, no recurring pulmonary infections Cardiovascular/Peripheral Vascular: No chest pain, No palpitations, no edema, no shortness of breath. Gastrointestinal: no incontinence, normal bowel movements reported Genitourinary: no incontinence Musculoskeletal: Myofascial pain syndrome Psychiatric: normal mood/ affect Neurological: [denies weakness in extremities], [denies balance issues] Objective:: Physical Exam General: Alert and oriented x3, no acute distress, pleasant and cooperative, [on room air] Lungs: Resps E/U, Symmetrical chest expansion, Eyes: PERRL Musculoskeletal: Flexion and extension of cervical spine somewhat guarded secondary to pain, deep tendon reflexes normal, strength in upper and lower extremities [5/5], [abnormal gait noted] palpable trigger points cervical paraspinous bilateral trapezius Neurological: speech clear, dye penetrant testing technician equal, no gross sensory deficits Assessment:: Myofascial pain syndrome Plan:: We will schedule her for bilateral trigger points of cervical paraspinous and t rapezius muscles. Patient's been instructed to call the office if she has any issues prior to her next appointment. Dr. Veliz has reviewed this note and agrees with this plan of care. This note was dictated using voice recognition software and may contain errors or omissions
== END ==
PROVIDERS: PCP Nurse Practitioner Family; Visit Provider Clinical Nurse Specialist Family Health
DX: M79.18 Myalgia, other site (principal)
CPT/HCPCS: 99212

== ENCOUNTER → 2019-03-26 14:27 | Outpatient (CLI) | payer MEDICARE, MEDICAID, SELFPAY ==
--- NOTE | 2019-03-26 14:36 | MM_ITS ---
MM Dig mamm DX w/CAD INDICATION: Left breast pain off and on for years, some swelling and pain left arm ORDERING PHYSICIAN: KARINA PATIENT AGE: 58 years COMPARISON: None TECHNIQUE: Standard MLO and CC views were obtained along with exaggerated cc views of each breast. FINDINGS: The breasts are composed primarily of fat with minimal scattered fiber glandular densities in each breast. There is a mole marker right breast. There is no suspicious lesion in either breast and no suspicious microcalcifications. IMPRESSION: Fatty type breast parenchyma with no suspicious lesion seen BI-RADS Category: 2 Benign Finding(s) RECOMMENDED FOLLOW-UP: 1YR - 1 YEAR FOLLOW-UP (A letter has been sent to the patient regarding results of the study.)
== END ==
PROVIDERS: PCP Nurse Practitioner Family; Visit Provider Nurse Practitioner Family
DX: N64.4 Mastodynia (principal)
CPT/HCPCS: 77066

== ENCOUNTER → 2019-04-10 09:55 | Outpatient (POV) | payer MEDICARE, MEDICAID, SELFPAY ==
[2019-04-10 10:22] VITALS: BP 188/91; PULSE 71; RESP 18; O2SAT 98; BMI 31.8
--- NOTE | 2019-04-10 10:25 | P.CONS_ITS ---
[facility] Pain Management SOAP Note Subjective:: Patient is a pleasant 58-year-old white female who presents today forfollow-up. Patient is being treated for myofascial pain. Lateral cervical paraspinal injections. She rates her pain a 3 out of 10 today. She says that helped her tremendously. He got 80% relief with them. She says that the injections usually work for about a month and then the pain returns. She is feeling well today and says that she is able to do light activity. Patient is continuing a home stretching program and anti-inflammatories. Review of Systems General: No recent weight changes, no fever, no sleep disturbances Respiratory: No cough, no shortness of air, no recurring pulmonary infections Cardiovascular/peripheral vascular: No chest pain, no palpitations, no edema, no shortness of breath Gastrointestinal: No new onset incontinence, normal bowel movements reported Genitourinary: No new onset incontinence Musculoskeletal: Neck pain Psychiatric: Normal mood/affect Neurological: [Denies weakness in extremities], [denies balance issues] Objective:: Physical exam General: Alert and oriented x3, no acute distress, pleasant and cooperative, [on room air] Lungs: Respirations even and unlabored, symmetrical chest expansion Eyes: PERRL Musculoskeletal: Flexion and extension of [cervical] spine somewhat guarded secondary to pain, deep tendon reflexes normal, strength in upper and lower extremities [5/5], normal gait noted Neurological: Speech clear, mercerizing range controller equal, no gross sensory deficit Assessment:: MyoFacial pain syndrome Plan:: Patient is feeling much better after the injections. Her pain does generally return 1 month after her injections. We will schedule her for Bilateral cervical paraspinous and upper trapezius muscle injections in 1 month. She will continue with her home stretching program and anti-inflammatories. She is been instructed to call the office if she has any concerns prior to her next appointment. Dr. Veliz has reviewed this note and agrees with this plan of care. This note was dictated using voice recognition software and make contain errors or omissions.
== END ==
PROVIDERS: PCP Nurse Practitioner Family; Visit Provider Clinical Nurse Specialist Family Health
DX: M79.18 Myalgia, other site (principal)
CPT/HCPCS: 99212

== ENCOUNTER → 2019-05-15 10:38 | Outpatient (POV) | payer MEDICARE, MEDICAID, SELFPAY ==
[2019-05-15 10:55] VITALS: BP 137/98; PULSE 70; RESP 18; O2SAT 98; BMI 33.1
--- NOTE | 2019-05-15 12:35 | P.CONS_ITS ---
[facility] Pain Management SOAP Note Subjective:: Pleasant 59-year-old white female who presents today for follow-up after trigger point injections. Patient states she thought that she had an infection after her trigger point injections on examination of the site it is lower than the injections were given its also presenting as a pimple. Patient states that her has been squeezing it encouraged him not to do so. I also stated if it got worse for them to seek medical professional help. Patient rates her pain a 7 out of 10 today after trigger point injection she says got 80% relief however she would like to hold off right now and see how she does try to discuss physical therapy with her which she stated I will not be doing that because my neck is too bad.0. At this point I am unsure of what else we can offer this patient. ROS General: no recent weight change, no fever, no sleep disturbances Respiratory: no cough, no shortness of air, no recurring pulmonary infections Cardiovascular/Peripheral Vascular: No chest pain, No palpitations, no edema, no shortness of breath. Gastrointestinal: no incontinence, normal bowel movements reported Genitourinary: no incontinence Musculoskeletal: Neck pain, myofascial pain Psychiatric: normal mood/ affect Neurological: [denies weakness in extremities], [denies balance issues] Objective:: Physical Exam General: Alert and oriented x3, no acute distress, pleasant and cooperative, [on room air] Lungs: Resps E/U, Symmetrical chest expansion, Eyes: PERRL Musculoskeletal: Flexion and extension of cervical spine somewhat guarded secondary to pain, deep tendon reflexes normal, strength in upper and lower extremities [5/5], [abnormal gait noted] Neurological: speech clear, flat grinder operator equal, no gross sensory deficits Assessment:: Myofascial pain syndrome Plan:: We will see the patient back 2 months reassess her symptoms at that time she is been instructed to call the office if she has any issues prior to her next appointment. Dr. Veliz has reviewed this note and agrees with this plan of care. This note was dictated using voice recognition software and may contain errors or omissions Pain Management Hx [employer]onents *Have you ever received a pneumonia vaccine?: Yes *Have you received a flu vaccine this season?: Yes - *Social History *Occupational Status:: other *Travel in the last 8 weeks: None
== END ==
PROVIDERS: PCP Nurse Practitioner Family; Visit Provider Clinical Nurse Specialist Family Health
DX: M79.18 Myalgia, other site (principal)
CPT/HCPCS: 99212

== ENCOUNTER → 2019-07-16 09:12 | Outpatient (POV) | payer MEDICARE, MEDICAID, SELFPAY ==
[2019-07-16 09:34] VITALS: BP 158/92; PULSE 78; RESP 18; O2SAT 98; BMI 38.9
--- NOTE | 2019-07-16 09:55 | HMH.PAINSOAP ---
[facility] Pain Management SOAP Note Subjective:: Patient is a pleasant 59-year-old white female who presents today for follow-up. Patient rates her pain today 5 out of 10 in her neck. Patient's been getting trigger point injections and doing well with them. She gets up to 60% relief for several months. Patient unable to tolerate medications. She has stopped taking her tizanidine. ROS General: no recent weight change, no fever, no sleep disturbances Respiratory: no cough, no shortness of air, no recurring pulmonary infections Cardiovascular/Peripheral Vascular: No chest pain, No palpitations, no edema, no shortness of breath. Gastrointestinal: no new onset incontinence, normal bowel movements reported Genitourinary: no new onset incontinence Musculoskeletal: Neck pain, myofascial pain syndrome Psychiatric: normal mood/ affect, Neurological: [denies new onset weakness in extremities], [denies new onset balance issues] Objective:: Physical Exam General: Alert and oriented x3, no acute distress, pleasant and cooperative, [on room air] Lungs: Resps E/U, Symmetrical chest expansion, Eyes: PERRL Musculoskeletal: Flexion and extension of cervical spine somewhat guarded secondary to pain, palpable trigger points left trapezius muscle. Deep tendon reflexes normal, strength in upper and lower extremities [5/5], [abnormal gait noted] Neurological: speech clear, cash processing specialist equal, no gross sensory deficits Assessment:: Myofascial pain syndrome Plan:: We will schedule her for trigger points of her left trapezius. Patient has done well with this in the past. Patient does have palpable trigger points in this area. Patient is continuing a home stretching program and is on anti-inflammatories. Dr. Veliz has reviewed this note and agrees with this plan of care. This note was dictated using voice recognition software and may contain errors or omissions [facility] History I have reviewed the patient's past medical history: Yes Medical History: Reports:: Anxiety, Chronic Obstructive Pulmonary Disease (COPD), Hypertension, Lung Disease (asthma/COPD), Migraine Denies:: Cancer, Diabetes Mellitus Type 1, Diabetes Mellitus Type 2, Internal Pacemaker, MRSA, Seizures *Have you ever received a pneumonia vaccine?: No *Have you received a flu vaccine this season?: No Other Medical History: Reports: Arthritis, Fibromyalgia, Other. Denies: Blood Transfusion Reaction Other Surgeries: Yes: Hysterectomy-Total, Tubal Ligation, Other. No: Pacemaker Amputation: No Fractures: No - *Social History Smoking Status: Current every day smoker Tobacco Type: cigarettes # Packs/Day (cigarettes): 1 #Yrs smoked (if former smoker): 20 Alcohol Intake: never Substance Use Type: denies use *Occupational Status:: other Housing: house Household Members: spouse *Travel in the last 8 weeks: None - Psychiatric History Pschychiatric History:: Reports:: Anxiety Family Hx:: Cancer, Diabetes, Coronary Artery Disease
== END ==
PROVIDERS: PCP Nurse Practitioner Family; Visit Provider Clinical Nurse Specialist Family Health
DX: M79.18 Myalgia, other site (principal)
CPT/HCPCS: 99212

== ENCOUNTER → 2019-08-20 10:45 | Outpatient (POV) | payer MEDICARE, MEDICAID, SELFPAY ==
--- NOTE | 2019-08-20 11:13 | HMH.PAINSOAP ---
[facility] Pain Management SOAP Note Subjective:: Patient is a pleasant 59-year-old white female who presents today for follow-up after trigger point injections. Patient states that she got over 80% relief of her pain after her injection. Patient states that she is to suffer from migraines 5 days a week and now she is only had one per month since she started getting injections overall doing well. She does rate her pain a 9 out of 10 however she states she is having a migraine she is asking for a steroid injection today. I discussed with her that she would be able to go down to the urgent treatment center if needed. ROS General: no recent weight change, no fever, no sleep disturbances Respiratory: no cough, no shortness of air, no recurring pulmonary infections Cardiovascular/Peripheral Vascular: No chest pain, No palpitations, no edema, no shortness of breath. Gastrointestinal: no new onset incontinence, normal bowel movements reported Genitourinary: no new onset incontinence Musculoskeletal: Myofascial pain Psychiatric: normal mood/ affect Neurological: [denies new onset weakness in extremities], [denies new onset balance issues] Objective:: Physical Exam General: Alert and oriented x3, no acute distress, pleasant and cooperative, [on room air] Lungs: Resps E/U, Symmetrical chest expansion, Eyes: PERRL Musculoskeletal: Flexion and extension of cervical spine somewhat guarded secondary to pain, deep tendon reflexes normal, strength in upper and lower extremities [5/5], antalgic gait noted Neurological: speech clear, map colorer equal, no gross sensory deficits Assessment:: Myofascial pain syndrome Plan:: We will set the patient up for bilateral cervical paraspinous injections given the efficacy of this in the past I believe it would be beneficial. I will follow-up with the patient after her injection reassess her symptoms at that time she is been instructed to call the office if she has any issues prior to her next appointment. Dr. Veliz has reviewed this note and agrees with this plan of care. This note was dictated using voice recognition software and may contain errors or omissions [facility] History I have reviewed the patient's past medical history: Yes Medical History: Reports:: Anxiety, Chronic Obstructive Pulmonary Disease (COPD), Hypertension, Lung Disease (asthma/COPD), Migraine Denies:: Cancer, Diabetes Mellitus Type 1, Diabetes Mellitus Type 2, Internal Pacemaker, MRSA, Seizures *Have you ever received a pneumonia vaccine?: No *Have you received a flu vaccine this season?: No Other Medical History: Reports: Arthritis, Fibromyalgia, Other. Denies: Blood Transfusion Reaction Other Surgeries: Yes: Colonoscopy, Hysterectomy-Total, Thyroidectomy, Tubal Ligation, Other. No: Pacemaker Amputation: No Fractures: No - *Social History Smoking Status: Current every day smoker Tobacco Type: cigarettes # Packs/Day (cigarettes): 30 #Yrs smoked (if former smoker): 20 Alcohol Intake: never Substance Use Type: denies use *Occupational Status:: disabled Housing: house Household Members: spouse *Travel in the last 8 weeks: None - Psychiatric History Pschychiatric History:: Reports:: Anxiety Family Hx:: Cancer, Diabetes, Coronary Artery Disease
--- NOTE | 2019-08-20 11:16 | P.CONS_ITS ---
[facility] Pain Management SOAP Note Subjective:: Patient is a pleasant 59-year-old white female who presents today for follow-up after trigger point injections. Patient states that she got over 80% relief of her pain after her injection. Patient states that she is to suffer from migraines 5 days a week and now she is only had one per month since she started getting injections overall doing well. She does rate her pain a 9 out of 10 however she states she is having a migraine she is asking for a steroid injection today. I discussed with her that she would be able to go down to the urgent treatment center if needed. ROS General: no recent weight change, no fever, no sleep disturbances Respiratory: no cough, no shortness of air, no recurring pulmonary infections Cardiovascular/Peripheral Vascular: No chest pain, No palpitations, no edema, no shortness of breath. Gastrointestinal: no new onset incontinence, normal bowel movements reported Genitourinary: no new onset incontinence Musculoskeletal: Myofascial pain Psychiatric: normal mood/ affect Neurological: [denies new onset weakness in extremities], [denies new onset balance issues] Objective:: Physical Exam General: Alert and oriented x3, no acute distress, pleasant and cooperative, [on room air] Lungs: Resps E/U, Symmetrical chest expansion, Eyes: PERRL Musculoskeletal: Flexion and extension of cervical spine somewhat guarded secondary to pain, deep tendon reflexes normal, strength in upper and lower extremities [5/5], antalgic gait noted Neurological: speech clear, tipple boss equal, no gross sensory deficits Assessment:: Myofascial pain syndrome Plan:: We will set the patient up for bilateral cervical paraspinous injections given the efficacy of this in the past I believe it would be beneficial. I will follow-up with the patient after her injection reassess her symptoms at that time she is been instructed to call the office if she has any issues prior to her next appointment. Dr. Veliz has reviewed this note and agrees with this plan of care. This note was dictated using voice recognition software and may contain errors or omissions [facility] History I have reviewed the patient's past medical history: Yes Medical History: Reports:: Anxiety, Chronic Obstructive Pulmonary Disease (COPD), Hypertension, Lung Disease (asthma/COPD), Migraine Denies:: Cancer, Diabetes Mellitus Type 1, Diabetes Mellitus Type 2, Internal Pacemaker, MRSA, Seizures *Have you ever received a pneumonia vaccine?: No *Have you received a flu vaccine this season?: No Other Medical History: Reports: Arthritis, Fibromyalgia, Other. Denies: Blood Transfusion Reaction Other Surgeries: Yes: Colonoscopy, Hysterectomy-Total, Thyroidectomy, Tubal Ligation, Other. No: Pacemaker Amputation: No Fractures: No - *Social History Smoking Status: Current every day smoker Tobacco Type: cigarettes # Packs/Day (cigarettes): 30 #Yrs smoked (if former smoker): 20 Alcohol Intake: never Substance Use Type: denies use *Occupational Status:: disabled Housing: house Household Members: spouse *Travel in the last 8 weeks: None - Psychiatric History Pschychiatric History:: Reports:: Anxiety Family Hx:: Cancer, Diabetes, Coronary Artery Disease
[2019-08-20 11:36] VITALS: BP 147/98; PULSE 65; RESP 18; O2SAT 98; BMI 32.8
== END ==
PROVIDERS: PCP Nurse Practitioner Family; Visit Provider Clinical Nurse Specialist Family Health
DX: M79.18 Myalgia, other site
CPT/HCPCS: 99212

== ENCOUNTER → 2019-10-29 13:10 | Outpatient (POV) | payer MEDICARE, MEDICAID, SELFPAY ==
[2019-10-29 13:40] VITALS: BP 162/71; PULSE 65; RESP 18; O2SAT 99; BMI 32.2
--- NOTE | 2019-10-29 13:53 | HMH.PAINSOAP ---
[facility] Pain Management SOAP Note Subjective:: Patient is a pleasant 59-year-old white female who presents today for follow-up after trigger point injections. Patient states she did extremely well getting 80% relief of the symptoms in her trapezius muscles however she states that she is having more cervical paraspinous pain at this time she would like to have trigger points done in the same place. She rates the pain in her neck at 8 out of 10 She has recently quit smoking. ROS General: no recent weight change, no fever, no sleep disturbances Respiratory: no cough, no shortness of air, no recurring pulmonary infections Cardiovascular/Peripheral Vascular: No chest pain, No palpitations, no edema, no shortness of breath. Gastrointestinal: no new onset incontinence, normal bowel movements reported Genitourinary: no new onset incontinence Musculoskeletal: Neck pain Psychiatric: normal mood/ affect Neurological: [denies new onset weakness in extremities], [denies new onset balance issues] Objective:: Physical Exam General: Alert and oriented x3, no acute distress, pleasant and cooperative, [on room air] Lungs: Resps E/U, Symmetrical chest expansion, Eyes: PERRL Musculoskeletal: Flexion and extension of cervical spine somewhat guarded secondary to pain, deep tendon reflexes normal, strength in upper and lower extremities [5/5], slightly antalgic gait noted Neurological: speech clear, pneumatic tool repairer equal, no gross sensory deficits Assessment:: Myofascial pain syndrome Plan:: We will schedule trigger point injections of the cervical paraspinous and bilateral trapezius muscles with the patient. Patient's been instructed to call the office if she has any issues prior to her next appointment. I will follow-up with her at that time reassess her at that time Dr. Veliz has reviewed this note and agrees with this plan of care. This note was dictated using voice recognition software and may contain errors or omissions [facility] History I have reviewed the patient's past medical history: Yes Medical History: Reports:: Anxiety, Chronic Obstructive Pulmonary Disease (COPD), Hypertension, Lung Disease (asthma/COPD), Migraine Denies:: Cancer, Diabetes Mellitus Type 1, Diabetes Mellitus Type 2, Internal Pacemaker, MRSA, Seizures *Have you ever received a pneumonia vaccine?: Yes *Have you received a flu vaccine this season?: Yes Other Medical History: Reports: Arthritis, Fibromyalgia, Other. Denies: Blood Transfusion Reaction Other Surgeries: Yes: Colonoscopy, Hysterectomy-Total, Thyroidectomy, Tubal Ligation, Other. No: Pacemaker Amputation: No Fractures: No - *Social History Smoking Status: Former smoker Tobacco Type: cigarettes # Packs/Day (cigarettes): 1 #Yrs smoked (if former smoker): 20 Alcohol Intake: never Substance Use Type: denies use *Occupational Status:: other Housing: house Household Members: spouse *Travel in the last 8 weeks: None - Psychiatric History Pschychiatric History:: Reports:: Anxiety Family Hx:: Cancer, Diabetes, Coronary Artery Disease
== END ==
PROVIDERS: PCP Nurse Practitioner Family; Visit Provider Clinical Nurse Specialist Family Health
DX: M79.18 Myalgia, other site (principal)
CPT/HCPCS: 99212

== ENCOUNTER → 2020-01-08 13:52 | Outpatient (CLI) | payer MEDICARE, MEDICAID, SELFPAY ==
--- NOTE | 2020-01-08 14:04 | US_ITS ---
PROCEDURE: US THYROID CLINICAL INDICATION: THYROMEGALY COMPARISON: No exams were available for comparison FINDINGS: The right lobe is 3.3 x 1.2 x 1.5 cm and the left lobe is 4 x 1 x 1.2 cm. On the right there is a 3 mm cyst in the lower pole and a septated 4 mm cyst in the mid polar region. On the left there is a hypoechoic nodule in the upper pole at 5 mm IMPRESSION: Small bilateral nodules which have a low level of suspicion for malignancy Dictated by: Moustapha Andrews MD 01/08/2020 18:42 Electronically signed by Moustapha Andrews MD in [place] 01/08/2020 18:42
== END ==
PROVIDERS: PCP Nurse Practitioner Family; Visit Provider Nurse Practitioner Family
DX: E01.0 Iodine-deficiency related diffuse (endemic) goiter (principal)
CPT/HCPCS: 76536

== ENCOUNTER → 2020-01-15 10:53 | Outpatient (POV) | payer MEDICARE, MEDICAID, SELFPAY ==
[2020-01-15 11:08] VITALS: BP 152/85; PULSE 68; RESP 18; TEMP 36.6; O2SAT 98
--- NOTE | 2020-01-15 11:09 | HMH.PAINSOAP ---
[facility] Pain Management SOAP Note Subjective:: Patient is a pleasant 59-year-old white female who presents today for follow-up after trigger point injections. Patient states she did extremely well however she would like to repeat this she rates her pain today a 10 out of 10. Patient looks like she may have a lipoma on her back. We sent her to Dr. Subramanian for consultation however she has not been to that appointment. ROS General: no recent weight change, no fever, no sleep disturbances Respiratory: no cough, no shortness of air, no recurring pulmonary infections Cardiovascular/Peripheral Vascular: No chest pain, No palpitations, no edema, no shortness of breath. Gastrointestinal: no new onset incontinence, normal bowel movements reported Genitourinary: no new onset incontinence Musculoskeletal: [Myofascial pain Psychiatric: normal mood/ affect Neurological: [denies new onset weakness in extremities], [denies new onset balance issues] Objective:: Physical Exam General: Alert and oriented x3, no acute distress, pleasant and cooperative, [on room air] Lungs: Resps E/U, Symmetrical chest expansion, Eyes: PERRL Musculoskeletal: Flexion and extension of cervical spine somewhat guarded secondary to pain, deep tendon reflexes normal, strength in upper and lower extremities [5/5], antalgic gait noted, palpable trigger points bilateral trapezius muscles Neurological: speech clear, quality control representative equal, no gross sensory deficits Assessment:: Myofascial pain syndrome Plan:: I will schedule the patient for bilateral trigger point injections to the trapezius muscles given the efficacy of this in the past. We will do this after she is seen by Dr. Subramanian's we can discuss options. Patient's been instructed to call the office if she has any issues prior to her next appointment. We specifically discussed risk factors for Covid-19 including age, heart or lung disease, diabetes, immunosuppression and travel. We also discussed that NSAIDs may worsen Covid-19 infection symptoms and that they should not be used to treat Covid-19 symptoms. Patient was also informed that corticosteroids in any form oral or injectable will decrease immune response and may increase risk of Covid-[address] Veliz has reviewed this patient's chart and this note and agrees with plan of care. Patient has been instructed to call the office if they have any issues prior to the next appointment. [facility] History I have reviewed the patient's past medical history: Yes Medical History: Reports:: Anxiety, Chronic Obstructive Pulmonary Disease (COPD), Hyperlipidemia, Hypertension, Lung Disease (asthma/COPD), Migraine Denies:: Cancer, Diabetes Mellitus Type 1, Diabetes Mellitus Type 2, Internal Pacemaker, MRSA, Seizures *Have you ever received a pneumonia vaccine?: No *Have you received a flu vaccine this season?: No Other Medical History: Reports: Arthritis, Fibromyalgia, Other. Denies: Blood Transfusion Reaction Other Surgeries: Yes: Colonoscopy, Hysterectomy-Total, Thyroidectomy, Tubal Ligation, Other. No: Pacemaker Amputation: No Fractures: No - *Social History Smoking Status: Former smoker Tobacco Type: cigarettes # Packs/Day (cigarettes): 1 #Yrs smoked (if former smoker): 20 Alcohol Intake: never Substance Use Type: denies use *Occupational Status:: unemployed Housing: house Household Members: other *Travel in the last 8 weeks: None - Psychiatric History Pschychiatric History:: Reports:: Anxiety Family Hx:: Cancer, Diabetes, Coronary Artery Disease
== END ==
PROVIDERS: Visit Provider Clinical Nurse Specialist Family Health
DX: M79.18 Myalgia, other site (principal)
CPT/HCPCS: 99212

== ENCOUNTER → 2020-01-27 10:07 | Outpatient (CLI) | payer MEDICARE, MEDICAID, SELFPAY ==
[2020-01-28 16:30] LABS: Covid-19 Nasal PCR Sendout UK Not Detected
== END ==
PROVIDERS: PCP Nurse Practitioner Family; Visit Provider Anesthesiology
DX: Z03.818 Encounter for observation for suspected exposure to other biological agents ruled out (principal)
CPT/HCPCS: U0003

== ENCOUNTER 2020-01-29 12:40 | Day surgery (SDC) | payer MEDICARE, MEDICAID, SELFPAY ==
[2020-01-29 12:57] VITALS: BP 191/98; PULSE 75; RESP 18; O2SAT 96; BMI 36.6
[2020-01-29 13:16] VITALS: BP 165/72; PULSE 81; O2SAT 96
--- NOTE | 2020-01-29 13:16 | HMH.PMPROC ---
- Procedure Date: 01/29/20 Time: 13:16 Anesthesiologist:: Alma Rosa Donovan APRN Complications:: None Pre-procedure Diagnosis:: Myofascial pain syndrome Post-procedure Diagnosis:: Same Indications for Procedure:: Patient is very pleasant 59-year-old white female presents today for trigger point injections of the bilateral trapezius muscles. Patient rates her pain today an 8 out of 10. Patient states that these injections helped up to 80%. Patient is palpable trigger points bilateral trapezius muscles Procedure Details:: procedure: Informed consent was obtained and the risk and benefits of the procedure were explained to the patient. Patient was taken to the procedure room. Bilateral trapezius muscles was prepped using ChloraPrep as a cleansing solution. Trigger points were palpated and marked. Each of these trigger points were injected with 3 mL's of bupivacaine 0.25 and Depo-Medrol 10 mg. A total of 80 milligrams of Depo-Medrol was used for 8 trigger point injections. Bandages were placed over the injection sites. Patient tolerated the procedure well with no complications. Plan and Disposition:: We will follow-up with the patient in several weeks reassess her symptoms at that time she has been instructed to call the office if she has any issues prior to next appointment. Dr. Veliz has reviewed this note and agrees with this plan of care. This note was dictated using voice recognition software and may contain errors or omissions
[2020-01-29 13:17] VITALS: BP 142/69; PULSE 70; RESP 20; O2SAT 96
[2020-01-29 13:21] VITALS: BP 196/102; PULSE 71; RESP 18; O2SAT 96
== END 2020-01-29 13:22 | disposition home or self-care (01) ==
LOC: SC.PAINP 12:41
PROVIDERS: PCP Nurse Practitioner Family; Visit Provider Clinical Nurse Specialist Family Health
DX: M79.18 Myalgia, other site (principal); Z88.1 Allergy status to other antibiotic agents; Z87.891 Personal history of nicotine dependence; F32.9 Major depressive disorder, single episode, unspecified; F41.9 Anxiety disorder, unspecified; E03.9 Hypothyroidism, unspecified; D64.9 Anemia, unspecified
CPT/HCPCS: 20552; J1040

== ENCOUNTER → 2020-02-18 11:35 | Outpatient (POV) | payer MEDICARE, MEDICAID, SELFPAY ==
[2020-02-18 13:30] VITALS: BP 166/78; PULSE 72; RESP 18; TEMP 36.8; O2SAT 99; BMI 36.2
--- NOTE | 2020-02-19 08:26 | HMH.PAINSOAP ---
[facility] Pain Management SOAP Note Subjective:: Pleasant 59-year-old white female presents today for follow-up after trigger point injections. She is doing quite well. She rates her pain a 3 out of 10. She did have some headaches post injection. She would like to move forward with trigger point injections in the cervical paraspinous bilaterally. Patient has had these in the past and gets up to 80% relief. ROS General: no recent weight change, no fever, no sleep disturbances Respiratory: no cough, no shortness of air, no recurring pulmonary infections Cardiovascular/Peripheral Vascular: No chest pain, No palpitations, no edema, no shortness of breath. Gastrointestinal: no new onset incontinence, normal bowel movements reported Genitourinary: no new onset incontinence Musculoskeletal: Myofascial pain Psychiatric: normal mood/ affect, [denies depression], [denies anxiety] Neurological: [denies new onset weakness in extremities], [denies new onset balance issues] Objective:: Physical Exam General: Alert and oriented x3, no acute distress, pleasant and cooperative, [on room air] Lungs: Resps E/U, Symmetrical chest expansion, Eyes: PERRL Musculoskeletal: Flexion and extension of cervical spine somewhat guarded secondary to pain, deep tendon reflexes normal, strength in upper and lower extremities [5/5], antalgic gait noted, palpable trigger points cervical paraspinous and bilateral trapezius muscles Neurological: speech clear, dub room engineer equal, no gross sensory deficits Assessment:: Myofascial pain syndrome Plan:: Forward with cervical paraspinous trigger point injections along with bilateral trapezius muscle injections. I will follow-up with her after this reassess her symptoms at that time she has been instructed to call the office if she has any issues prior to her next appointment. Dr. Veliz has reviewed this note and agrees with this plan of care. This note was dictated using voice recognition software and may contain errors or omissions [facility] History I have reviewed the patient's past medical history: Yes Medical History: Reports:: Anxiety, Chronic Obstructive Pulmonary Disease (COPD), Hyperlipidemia, Hypertension, Lung Disease (asthma/COPD), Migraine Denies:: Cancer, Diabetes Mellitus Type 1, Diabetes Mellitus Type 2, Internal Pacemaker, MRSA, Seizures *Have you ever received a pneumonia vaccine?: Yes *Have you received a flu vaccine this season?: Yes Other Medical History: Reports: Anemia, Arthritis, Fibromyalgia, Hypothyroidism, Other. Denies: Blood Transfusion Reaction Other Surgeries: Yes: Colonoscopy, Hysterectomy-Total, Thyroidectomy, Tubal Ligation, Other. No: Pacemaker Amputation: No Fractures: No - *Social History Smoking Status: Former smoker Tobacco Type: cigarettes # Packs/Day (cigarettes): 1 #Yrs smoked (if former smoker): 20 Alcohol Intake: never Substance Use Type: denies use *Occupational Status:: other Housing: house Household Members: other *Travel in the last 8 weeks: None - Psychiatric History Pschychiatric History:: Reports:: Anxiety Family Hx:: Cancer, Diabetes, Coronary Artery Disease
== END ==
PROVIDERS: PCP Nurse Practitioner Family; Visit Provider Clinical Nurse Specialist Family Health
DX: M79.18 Myalgia, other site
CPT/HCPCS: 99212

== ENCOUNTER 2020-02-29 09:15 | Day surgery (SDC) | payer MEDICARE, MEDICAID, SELFPAY ==
[2020-02-29 09:43] VITALS: BP 191/93; PULSE 77; RESP 18; TEMP 36; O2SAT 94; BMI 35.4
[2020-02-29 10:27] VITALS: BP 145/78; PULSE 85
[2020-02-29 10:28] VITALS: BP 147/89; PULSE 89; RESP 18
--- NOTE | 2020-02-29 10:30 | HMH.PMPROC ---
- Procedure Date: 02/29/20 Time: 10:30 Anesthesiologist:: Efrain Veliz MD Complications:: None Pre-procedure Diagnosis:: Neck pain myofascial in origin Post-procedure Diagnosis:: Same Indications for Procedure:: This patient is a pleasant 59-year-old white female who we have been treating for myofascial pain throughout the cervical paraspinous muscles and upper trapezius muscles. She has benefited greatly from previous trigger point injections. She was 80 to 90% better. We will do repeat trigger point injections as her pain is coming back. These trigger point injections will be over the upper trapezius muscles and bilateral cervical paraspinous muscles. Procedure Details:: Trigger point injections x8 to bilateral cervical paraspinous muscles and upper trapezius muscles Informed consent was obtained risk and benefits of the procedure was planed the patient. Patient was taken to the procedure room. The neck was prepped using ChloraPrep. Trigger points were palpated marked. Each of these trigger points were injected with bupivacaine 0.25% 3 mils and Depo-Medrol 10 mg. There was a total of 8 trigger points encompassing bilateral upper trapezius muscles and cervical paraspinous muscles. Patient tolerated procedure well with no complications. Plan and Disposition:: We will follow-up with her in 2 weeks. Will reevaluate symptoms at that time.
[2020-02-29 10:46] VITALS: BP 175/77; PULSE 74; RESP 20; O2SAT 98
== END 2020-02-29 10:47 | disposition home or self-care (01) ==
LOC: SC.PAINP 09:18
PROVIDERS: PCP Nurse Practitioner Family; Visit Provider Anesthesiology
DX: M79.18 Myalgia, other site (principal); I10 Essential (primary) hypertension; M50.10 Cervical disc disorder with radiculopathy, unspecified cervical region; E78.5 Hyperlipidemia, unspecified; J44.9 Chronic obstructive pulmonary disease, unspecified; J45.909 Unspecified asthma, uncomplicated; F41.9 Anxiety disorder, unspecified; F32.9 Major depressive disorder, single episode, unspecified; E07.9 Disorder of thyroid, unspecified; Z90.710 Acquired absence of both cervix and uterus; Z87.442 Personal history of urinary calculi; Z87.891 Personal history of nicotine dependence
CPT/HCPCS: 20553; 36415; 82565; 84520; J1030

== ENCOUNTER → 2020-02-29 11:10 | Outpatient (CLI) | payer MEDICARE, MEDICAID, SELFPAY ==
[2020-02-29 12:00] LABS: Blood Urea Nitrogen 9 mg/dl (7-17); Estimated Glomerular Filt Rate 73 ml/min (>60); GFR (African American) 88 ML/MIN (>60)
== END ==
PROVIDERS: Visit Provider Surgery
DX: Z01.818 Encounter for other preprocedural examination (principal)
CPT/HCPCS: 36415; 82565; 84520

== ENCOUNTER → 2020-03-07 09:38 | Outpatient (CLI) | payer MEDICARE, MEDICAID, SELFPAY ==
--- NOTE | 2020-03-07 09:44 | CT_ITS ---
PROCEDURE: CT SOFT TISSUE NECK W CON CLINICAL HISTORY: lipoma of neck Soft tissue mass of the neck enlarging COMPARISON: No exams were available for comparison TECHNIQUE: Oral Contrast: 75ml Optiray 350 IV Contrast: None Axial images obtained with sagittal and coronal reformats. All CT scans at the facility use one or more dose reduction, viz: automated exposure control, ma/kV adjustment per patient size (including targeted exams where dose is matched to indication, i.e. head), or iterative reconstruction technique. FINDINGS: Palpable soft tissue mass of the posterior neck is marked with a BB. There is prominence of the subcutaneous fat at this area measuring approximately 7.7 by 3 cm consistent with a lipoma. There is some minimal heterogeneous density within this fat however this is not significantly different from other areas of subcutaneous fat in the neck posteriorly and upper back. The nasopharynx has an unremarkable appearance. There is slight increased soft tissue density in the left parapharyngeal region of the hypopharynx. Direct visualization is suggested.. The epiglottis and glottic region are unremarkable. Thyroid gland has an unremarkable appearance. The submandibular glands and parotid glands are unremarkable. The lung apices are clear. IMPRESSION: 7.7 x 3 cm fat density in the posterior neck corresponding to the palpable abnormality consistent with a lipoma. There is some slight increased density within the lipoma of questionable clinical significance. Consider 3 to six-month follow-up to confirm stability. Slight asymmetric increased soft tissue density in the left parapharyngeal region. Direct visualization suggested Dictated by: Moustapha Andrews MD 03/08/2020 08:27 Electronically signed by Moustapha Andrews MD in [place] 03/08/2020 08:27
== END ==
PROVIDERS: PCP Nurse Practitioner Family; Visit Provider Surgery
DX: M54.2 Cervicalgia (principal)
CPT/HCPCS: 70491; Q9967

== ENCOUNTER → 2020-05-05 07:50 | Outpatient (CLI) | payer MEDICARE, MEDICAID, SELFPAY ==
--- NOTE | 2020-05-05 07:57 | MM_ITS ---
PROCEDURE: MM DIG SCREENING MAMM BI W/CAD Digital Breast Tomosynthesis Included CLINICAL INDICATION: SCREENING There is a history of breast cancer in patient's niece. COMPARISON: [facility] DIG MAMM-SCREEN FLOWER from 10/12/2013 [facility] DIG MAMM-SCREEN FLOWER W/CAD from 12/29/2016 MG DIG MAMM-DX FLOWER from 03/26/2019 TECHNIQUE: Standard CC and MLO images and 3D Tomosynthesis was obtained. R2 CAD reviewed. FINDINGS: The breasts are composed primarily of fat with minimal scattered fibroglandular densities throughout each breast and the findings are bilateral and symmetrical. There is a mole marker right breast. There is no suspicious lesion in either breast and no suspicious microcalcifications. IMPRESSION: Fibrofatty parenchyma with no suspicious lesions seen BI-RAD Category: 1 Negative FOLLOW-UP: 1YR 1 Year Follow-up (A letter has been sent to the patient regarding results of the study.) Dictated by: Dr. Tiago Jade MD 05/05/2020 11:59 Dr. Tiago Jade MD in [place] 05/05/2020 11:59
--- NOTE | 2020-05-05 08:15 | US_ITS ---
PROCEDURE: US LIVER CLINICAL INDICATION: FATTY LIVER,ABD BLOATING COMPARISON: CT CT ABDOMEN PELVIS W CON from 10/05/2019 FINDINGS: PANCREAS: Unremarkable. No obvious mass or abnormal fluid collection. No ductal dilatation LIVER: There is increased echogenicity of the liver with poor through transmission of sound consistent with fatty liver. There is appropriate direction of blood flow within a non dilated portal vein. RIGHT KIDNEY: Unremarkable. Normal size and echogenicity. No hydronephrosis GALLBLADDER: No gallstones, gallbladder wall thickening, pericholecystic fluid, or biliary dilatation. IMPRESSION: Fatty liver otherwise negative right upper quadrant ultrasound Dictated by: Moustapha Andrews MD 05/05/2020 15:47 Moustapha Andrews MD in [place] 05/05/2020 15:47
== END ==
PROVIDERS: PCP Nurse Practitioner Family; Visit Provider Nurse Practitioner Family
DX: Z12.31 Encounter for screening mammogram for malignant neoplasm of breast (principal); R14.0 Abdominal distension (gaseous); K76.0 Fatty (change of) liver, not elsewhere classified
CPT/HCPCS: 76705; 77063; 77067

== ENCOUNTER → 2020-05-29 15:05 | Outpatient (CLI) | payer MEDICARE, MEDICAID, SELFPAY ==
--- NOTE | 2020-05-29 15:29 | XR_ITS ---
PROCEDURE: XR ANKLE LT MIN 3V CLINICAL INDICATION: LT ANKLE SWELLING COMPARISON: No exams were available for comparison FINDINGS: Bones: No fracture or dislocation. No lytic or blastic change. There is normal mineralization. Joints: The joint spaces are well-preserved. No significant degenerative/arthritic changes. No erosive changes evident. Other findings:None. IMPRESSION: No acute findings. Dictated by: Moustapha Andrews MD 05/29/2020 16:47 Moustapha Andrews MD in [place] 05/29/2020 16:47
== END ==
PROVIDERS: PCP Nurse Practitioner Family; Visit Provider Nurse Practitioner Family
DX: M25.472 Effusion, left ankle (principal)
CPT/HCPCS: 73610

== ENCOUNTER → 2020-06-19 13:28 | Outpatient (POV) | payer MEDICARE, MEDICAID, SELFPAY ==
[2020-06-19 13:52] VITALS: BP 138/78; PULSE 74; RESP 18; TEMP 36.8; O2SAT 98; BMI 35.4
--- NOTE | 2020-06-19 14:03 | HMH.PAINSOAP ---
[facility] Pain Management SOAP Note Subjective:: Patient is a 60-year-old white female who presents today for myofascial pain in her cervical paraspinous and upper trapezius muscles. She has undergone trigger point injections in the past for which she gets 80 to 90% relief for up to 3 to 4 months. Patient says that her pain has returned. She would like to undergo trigger point injections again to see if she gets relief. Review of Systems General: No recent weight changes, no fever, no sleep disturbances Respiratory: No cough, no shortness of air, no recurring pulmonary infections Cardiovascular/peripheral vascular: No chest pain, no palpitations, no edema, no shortness of breath Gastrointestinal: No new onset incontinence, normal bowel movements reported Genitourinary: No new onset incontinence Musculoskeletal: Neck pain, left shoulder pain Psychiatric: Normal mood/affect Neurological: [Denies weakness in extremities], [denies balance issues] Objective:: Physical exam General: Alert and oriented x3, no acute distress, pleasant and cooperative, [on room air] Lungs: Respirations even and unlabored, symmetrical chest expansion Eyes: PERRL Musculoskeletal: Flexion and extension of cervical spine somewhat guarded secondary to pain, deep tendon reflexes normal, strength in upper and lower extremities [5/5], normal gait noted Neurological: Speech clear, hand stamper equal, no gross sensory deficit Assessment:: Myofascial pain cervical paraspinous and upper trapezius muscles Plan:: We will plan for trigger point injections to the patient's cervical paraspinous and upper trapezius muscles. We will plan to see her back in the clinic after her injections to reassess her symptoms. Patient has been instructed to contact clinic if she has any concerns before her next appointment. The patient and I specifically discussed risk factors for COVID19. These risks include, but are not limited to age greater than 60, heart or lung disease, diabetes, immunosuppression, and travel. We also discussed NSAIDs may worsen COVID19 infection or symptoms. Patient should not use NSAIDs to treat COVID19 signs or symptoms. Patient was also informed that any type of corticosteroid of any form (oral or injection) will decrease the patient's immune system response and may increase the likelihood of COVID19 [address] Veliz has reviewed this note and agrees with this plan of care. This note was dictated using voice recognition software and make contain errors or omissions. [facility] History I have reviewed the patient's past medical history: Yes Medical History: Reports:: Anxiety, Chronic Obstructive Pulmonary Disease (COPD), Hyperlipidemia, Hypertension, Lung Disease (asthma/COPD), Migraine Denies:: Cancer, Diabetes Mellitus Type 1, Diabetes Mellitus Type 2, Internal Pacemaker, MRSA, Seizures *Have you ever received a pneumonia vaccine?: Yes *Have you received a flu vaccine this season?: Yes Other Medical History: Reports: Anemia, Arthritis, Fibromyalgia, Hypothyroidism, Thyroid Disease, Other. Denies: Blood Transfusion Reaction Other Surgeries: Yes: Colonoscopy, Hysterectomy-Total, Thyroidectomy, Tubal Ligation, Other. No: Pacemaker Amputation: No Fractures: No - *Social History Smoking Status: Former smoker Tobacco Type: cigarettes # Packs/Day (cigarettes): 1 #Yrs smoked (if former smoker): 20 Alcohol Intake: never Substance Use Type: denies use *Occupational Status:: other Housing: house Household Members: other *Travel in the last 8 weeks: None - Psychiatric History Pschychiatric History:: Reports:: Anxiety Family Hx:: Cancer, Diabetes, Coronary Artery Disease
== END ==
PROVIDERS: PCP Nurse Practitioner Family; Visit Provider Clinical Nurse Specialist Family Health
DX: M79.18 Myalgia, other site (principal)
CPT/HCPCS: 99212

== ENCOUNTER 2020-06-23 14:34 | Day surgery (SDC) | payer MEDICARE, MEDICAID, SELFPAY ==
[2020-06-23 15:03] VITALS: BP 161/85; PULSE 75; RESP 18; TEMP 36.6; O2SAT 97; BMI 33.6
--- NOTE | 2020-06-23 15:27 | P.PCN_ITS ---
- Procedure Date: 06/23/20 Time: 15:27 Anesthesiologist:: Erna Baptiste APRN Complications:: None Pre-procedure Diagnosis:: Myofascial pain cervical paraspinous and upper trapezius muscles Post-procedure Diagnosis:: Same Indications for Procedure:: Patient is a pleasant 60-year-old white female who presents today for myofascial pain in cervical paraspinous and upper trapezius muscles. She has had trigger point ejections in the past and is gotten between 80 to 90% relief for up to 3 to 4 months. We will perform trigger point ejections to her cervical paraspinous and upper trapezius muscles today to see if she gets relief. Rates pain a 6 out of 10. Physical exam General: Alert and oriented x3, no acute distress, pleasant and cooperative, [on room air] Lungs: Respirations even and unlabored, symmetrical chest expansion Eyes: PERRL Musculoskeletal: Flexion and extension of cervical spine somewhat guarded secondary to pain, deep tendon reflexes normal, strength in upper and lower extremities [5/5], normal gait noted Neurological: Speech clear, pediatric social worker equal, no gross sensory deficit Procedure Details:: Informed consent was obtained and the risk and benefits of the procedures was explained to the patient. Patient was taken to the procedure room. Neck and upper trapezius area were prepped using ChloraPrep. Trigger points were palpa meseret and marked. Each of these trigger points were injected with bupivacaine 0.25% 3 mL and Depo-Medrol 10 mg. A total of 80 mg Depo-Medrol was used for bilateral trigger point of upper trapezius muscles and cervical paraspinous muscles. Bandages were placed over the injection sites. Patient tolerated the procedure well with no complications. Plan and Disposition:: We will plan to see the patient back in the clinic in 2 weeks to reassess her symptoms. She has been instructed to contact the clinic if she has any concerns for next form. The patient and I specifically discussed risk factors for COVID19. These risks include, but are not limited to age greater than 60, heart or lung disease, diabetes, immunosuppression, and travel. We also discussed NSAIDs may worsen COVID19 infection or symptoms. Patient should not use NSAIDs to treat COVID19 signs or symptoms. Patient was also informed that any type of corticosteroid of any form (oral or injection) will decrease the patient's immune system response and may increase the likelihood of COVID19 [address] Veliz has reviewed this note and agrees with this plan of care. This note was dictated using voice recognition software and make contain errors or omissions.
[2020-06-23 15:30] VITALS: BP 148/88; PULSE 85; RESP 18
[2020-06-23 15:31] VITALS: BP 148/88; PULSE 79; RESP 18; O2SAT 98
[2020-06-23 15:39] VITALS: BP 175/68; PULSE 68; RESP 20; O2SAT 97
== END 2020-06-23 15:40 | disposition home or self-care (01) ==
LOC: SC.PAINP 14:35
PROVIDERS: PCP Nurse Practitioner Family; Visit Provider Clinical Nurse Specialist Family Health
DX: M79.18 Myalgia, other site (principal); I10 Essential (primary) hypertension; K21.9 Gastro-esophageal reflux disease without esophagitis; J44.9 Chronic obstructive pulmonary disease, unspecified; Z88.6 Allergy status to analgesic agent; Z88.1 Allergy status to other antibiotic agents; Z88.8 Allergy status to other drugs, medicaments and biological substances; Z79.890 Hormone replacement therapy; Z79.51 Long term (current) use of inhaled steroids; Z79.899 Other long term (current) drug therapy
CPT/HCPCS: 20552; J1030

== ENCOUNTER → 2020-07-07 09:17 | Outpatient (POV) | payer MEDICARE, MEDICAID, SELFPAY ==
[2020-07-07 09:27] VITALS: BP 145/88; PULSE 85; RESP 18; TEMP 36.6; O2SAT 98; BMI 35.4
--- NOTE | 2020-07-07 09:49 | HMH.PAINSOAP ---
[facility] Pain Management SOAP Note Subjective:: Patient is a pleasant 60-year-old white female who presents today for follow-up after her trigger point injections. Patient is doing well at this time rating her pain a 3 out of 10. Her last trigger point injections lasted for 3 to 4 months with 90% pain relief. She would like to move forward with these in the future in several months. ROS General: no recent weight change, no fever, no sleep disturbances Respiratory: no cough, no shortness of air, no recurring pulmonary infections Cardiovascular/Peripheral Vascular: No chest pain, No palpitations, no edema, no shortness of breath. Gastrointestinal: no new onset incontinence, normal bowel movements reported Genitourinary: no new onset incontinence Musculoskeletal: Myofascial pain Psychiatric: normal mood/ affect, Neurological: [denies new onset weakness in extremities], [denies new onset balance issues] Objective:: Physical Exam General: Alert and oriented x3, no acute distress, pleasant and cooperative, [on room air] Lungs: Resps E/U, Symmetrical chest expansion, Eyes: PERRL Musculoskeletal: Flexion and extension of cervical spine somewhat guarded secondary to pain, deep tendon reflexes normal, strength in upper and lower extremities [5/5], [abnormal gait noted] Neurological: speech clear, worship pastor equal, no gross sensory deficits Assessment:: Myofascial pain cervical paraspinous and upper trapezius muscles Plan:: We will schedule her for trigger point injections prior to [place]. She has been instructed to call the office if she has any issues prior to her next appointment. Dr. Veliz has reviewed this note and agrees with this plan of care. This note was dictated using voice recognition software and may contain errors or omissions [facility] History I have reviewed the patient's past medical history: Yes Medical History: Reports:: Anxiety, Chronic Obstructive Pulmonary Disease (COPD), Hyperlipidemia, Hypertension, Lung Disease (asthma/COPD), Migraine Denies:: Cancer, Diabetes Mellitus Type 1, Diabetes Mellitus Type 2, Internal Pacemaker, MRSA, Seizures *Have you ever received a pneumonia vaccine?: Yes *Have you received a flu vaccine this season?: Yes Other Medical History: Reports: Anemia, Arthritis, Fibromyalgia, Hypothyroidism, Thyroid Disease, Other. Denies: Blood Transfusion Reaction Other Surgeries: Yes: Colonoscopy, Hysterectomy-Total, Thyroidectomy, Tubal Ligation, Other. No: Pacemaker Amputation: No Fractures: No - *Social History Smoking Status: Former smoker Tobacco Type: cigarettes # Packs/Day (cigarettes): 1 #Yrs smoked (if former smoker): 20 Alcohol Intake: never Substance Use Type: denies use *Occupational Status:: other Housing: house Household Members: other *Travel in the last 8 weeks: None - Psychiatric History Pschychiatric History:: Reports:: Anxiety Family Hx:: Cancer, Diabetes, Coronary Artery Disease
== END ==
PROVIDERS: PCP Nurse Practitioner Family; Visit Provider Clinical Nurse Specialist Family Health
DX: M79.18 Myalgia, other site (principal)
CPT/HCPCS: 99212

== ENCOUNTER 2020-09-01 13:42 | Day surgery (SDC) | payer MEDICARE, MEDICAID, SELFPAY ==
[2020-09-01 14:15] VITALS: BP 181/70; PULSE 69; RESP 18; TEMP 36.8; O2SAT 98; BMI 32.0
[2020-09-01 14:58] VITALS: BP 145/78; PULSE 85; RESP 18; O2SAT 98
[2020-09-01 14:59] VITALS: BP 147/77; PULSE 85; RESP 18; O2SAT 98
--- NOTE | 2020-09-01 15:04 | HMH.PMPROC ---
- Procedure Date: 09/01/20 Time: 15:04 Anesthesiologist:: Alma Rosa Donovan APRN Complications:: None Pre-procedure Diagnosis:: Myofascial pain syndrome Post-procedure Diagnosis:: Same Indications for Procedure:: Patient is a pleasant 60-year-old white female who presents today for trigger point injections of her bilateral trapezius muscles and bilateral thoracic paraspinous. Patient has had these in the past with 80% relief up to 3 months. Patient would like to repeat them today. She does have palpable trigger points bilateral trapezius and thoracic paraspinous bilaterally. Procedure Details:: Procedure: Informed consent was obtained and the risk and benefits of the procedure were explained to the patient. Patient was taken to the procedure room. Bilateral trapezius and thoracic paraspinous muscles was prepped using ChloraPrep as a cleansing solution. Trigger points were palpated and marked. Each of these trigger points were injected with 3 mL's of bupivacaine 0.25 and Depo-Medrol 10 mg. A total of 80 milligrams of Depo-Medrol was used for 8 trigger point injections. Bandages were placed over the injection sites. Patient tolerated the procedure well with no complications. Plan and Disposition:: We will see the patient back in several weeks in our office reassess her symptoms at that time she has been instructed to call the office if she has any issues prior to her next appointment. Dr. Veliz has reviewed this note and agrees with this plan of care. This note was dictated using voice recognition software and may contain errors or omissions
[2020-09-01 15:15] VITALS: BP 159/99; PULSE 68; RESP 20; O2SAT 98
== END 2020-09-01 15:15 | disposition home or self-care (01) ==
LOC: SC.PAINP 13:44
PROVIDERS: PCP Nurse Practitioner Family; Visit Provider Clinical Nurse Specialist Family Health
DX: M79.18 Myalgia, other site (principal)
CPT/HCPCS: 20553; J1030

== ENCOUNTER → 2020-12-25 12:33 | Outpatient (POV) | payer MEDICARE, MEDICAID, SELFPAY ==
--- NOTE | 2020-12-25 13:06 | P.CONS_ITS ---
[facility] Pain Management SOAP Note Subjective:: Patient is a pleasant 60-year-old white female who presents today for follow-up. Patient had good relief for quite some time. She is having continual migraines. We discussed consultation with neurology and potential Botox injections. At this time she cannot have any more steroid injections due to her eyesight. Patient may have to undergo surgery. She rates her pain today 7 out of 10. ROS General: no recent weight change, no fever, no sleep disturbances Respiratory: no cough, no shortness of air, no recurring pulmonary infections Cardiovascular/Peripheral Vascular: No chest pain, No palpitations, no edema, no shortness of breath. Gastrointestinal: no new onset incontinence, normal bowel movements reported Genitourinary: no new onset incontinence Musculoskeletal: Headaches Psychiatric: normal mood/ affect Neurological: [denies new onset weakness in extremities], [denies new onset balance issues] Objective:: Physical Exam General: Alert and oriented x3, no acute distress, pleasant and cooperative, [on room air] Lungs: Resps E/U, Symmetrical chest expansion, Eyes: PERRL Musculoskeletal: Flexion and extension of cervical spine somewhat guarded secondary to pain, deep tendon reflexes normal, strength in upper and lower extremities [5/5], [abnormal gait noted] Neurological: speech clear, network design architect equal, no gross sensory deficits Assessment:: Migraines, myofascial pain Plan:: We will schedule the patient with Dr. Lamb for potential Botox therapy. Patient is unable to have more steroid injections due to her eye health. Follow-up with her afterwards reassess her symptoms at that time she has been instructed to call the office if she has any issues prior to his next appointment. Dr. Veliz has reviewed this note and agrees with this plan of care. This note was dictated using voice recognition software and may contain errors or omissions [facility] History I have reviewed the patient's past medical history: Yes Medical History: Reports:: Anxiety, Chronic Obstructive Pulmonary Disease (COPD), Hyperlipidemia, Hypertension, Lung Disease (asthma/COPD), Migraine Denies:: Cancer, Diabetes Mellitus Type 1, Diabetes Mellitus Type 2, Internal Pacemaker, MRSA, Seizures *Have you ever received a pneumonia vaccine?: No *Have you received a flu vaccine this season?: No Other Medical History: Reports: Anemia, Arthritis, Fibromyalgia, Hypothyroidism, Thyroid Disease, Other. Denies: Blood Transfusion Reaction Laterality Cases: Bilateral: Myringotomy (Ear Tubes) Other Surgeries: Yes: Colonoscopy, Hysterectomy-Total, Thyroidectomy, Tubal Ligation, Other. No: Pacemaker Amputation: No Fractures: No - *Social History Smoking Status: Former smoker Tobacco Type: cigarettes # Packs/Day (cigarettes): 1 #Yrs smoked (if former smoker): 20 Alcohol Intake: never Substance Use Type: denies use *Occupational Status:: retired Housing: house Household Members: spouse *Travel in the last 8 weeks: None - Psychiatric History Pschychiatric History:: Reports:: Anxiety Family Hx:: Cancer, Diabetes, Coronary Artery Disease
[2020-12-25 15:01] VITALS: BP 136/89; PULSE 65; RESP 18; O2SAT 98; BMI 31.6
== END ==
PROVIDERS: PCP Nurse Practitioner Family; Visit Provider Clinical Nurse Specialist Family Health
DX: G43.909 Migraine, unspecified, not intractable, without status migrainosus (principal); M79.18 Myalgia, other site
CPT/HCPCS: 99212; G0463

== ENCOUNTER → 2021-01-22 10:58 | Outpatient (CLI) | payer MEDICARE, MEDICAID, SELFPAY ==
--- NOTE | 2021-01-22 10:58 | MR_ITS ---
PROCEDURE: MR HEAD/BRAIN WO CON CLINICAL INDICATION: MRI Brain- headaches, blurry vision Migraine headaches x3yrs. Memory loss. COMPARISON: No exams were available for comparison TECHNIQUE: Routine multiplanar multi echo sequences are performed without gadolinium enhancement. FINDINGS: No midline shift, mass effect, intracranial hemorrhage, or hydrocephalus. The cerebellopontine angles, cerebellum, brainstem and mid brain have an unremarkable appearance. There is mild degree of motion artifact which somewhat obscures fine detail. There are scattered periventricular and subcortical T2 white matter hyperintensities suggesting ischemic gliotic foci from microvascular disease. No evidence of acute infarction. The pituitary, optic chiasm, corpus callosum, and craniocervical junction have an unremarkable appearance. There is a mild degree of atrophy. Small amount of fluid is present in the mastoid sinuses. No paranasal sinus air-fluid level IMPRESSION: No acute finding. Mild degree of atrophy with minimal ischemic gliotic change. Trace bilateral mastoid effusions Dictated by: Moustapha Andrews MD 01/23/2021 10:58 Moustapha Andrews MD in [place] 01/23/2021 10:58
== END ==
PROVIDERS: PCP Nurse Practitioner Family; Visit Provider Specialist
DX: H53.8 Other visual disturbances (principal); R51.9 Headache, unspecified
CPT/HCPCS: 70551

== ENCOUNTER → 2021-02-23 11:51 | Outpatient (CLI) | payer MEDICARE, MEDICAID, SELFPAY | PROVIDERS: Visit Provider Ophthalmology | DX: Z01.812 Encounter for preprocedural laboratory examination (principal); Z11.52 Encounter for screening for COVID-19 | CPT/HCPCS: U0003 ==

== ENCOUNTER 2021-02-24 07:33 | Day surgery (SDC) | payer MEDICARE, MEDICAID, SELFPAY ==
[2021-02-24 08:15] VITALS: BP 177/97; PULSE 82; RESP 18; TEMP 36.2; O2SAT 97; BMI 33.5
[2021-02-24 09:30] VITALS: BP 170/77; PULSE 79; RESP 18; O2SAT 98
[2021-02-24 09:35] VITALS: BP 158/95; PULSE 77; RESP 18; O2SAT 96
[2021-02-24 09:40] VITALS: BP 163/77; PULSE 78; RESP 18; O2SAT 98
[2021-02-24 09:45] VITALS: BP 156/73; PULSE 78; RESP 18; O2SAT 100
[2021-02-24 09:48] VITALS: BP 164/96; PULSE 75; RESP 16; TEMP 37; O2SAT 98
== END 2021-02-24 09:50 | disposition home or self-care (01) ==
LOC: OR 07:34
PROVIDERS: PCP Nurse Practitioner Family; Visit Provider Ophthalmology
DX: H25.813 Combined forms of age-related cataract, bilateral (principal); H53.149 Visual discomfort, unspecified; H02.834 Dermatochalasis of left upper eyelid; H02.831 Dermatochalasis of right upper eyelid; K74.60 Unspecified cirrhosis of liver; J44.9 Chronic obstructive pulmonary disease, unspecified; E11.9 Type 2 diabetes mellitus without complications; Z79.899 Other long term (current) drug therapy
CPT/HCPCS: 66984; V2632

== ENCOUNTER → 2021-03-07 10:56 | Outpatient (CLI) | payer MEDICARE, MEDICAID, SELFPAY | PROVIDERS: Visit Provider Ophthalmology | DX: Z01.812 Encounter for preprocedural laboratory examination (principal); Z20.822 Contact with and (suspected) exposure to COVID-19 | CPT/HCPCS: U0003 ==

== ENCOUNTER 2021-03-10 08:27 | Day surgery (SDC) | payer MEDICARE, MEDICAID, SELFPAY ==
[2021-03-05 11:25] VITALS: BMI 35.6
[2021-03-10] VITALS (7 sets, daily range): BP systolic 155–191; BP diastolic 65–95; PULSE 65–75; RESP 18; TEMP 36.1–36.2; O2SAT 95–100
== END 2021-03-10 11:10 | disposition home or self-care (01) ==
LOC: OR 08:28
PROVIDERS: PCP Nurse Practitioner Family; Visit Provider Ophthalmology
DX: H25.813 Combined forms of age-related cataract, bilateral (principal); H53.149 Visual discomfort, unspecified; H02.831 Dermatochalasis of right upper eyelid; H02.834 Dermatochalasis of left upper eyelid; J44.9 Chronic obstructive pulmonary disease, unspecified; E11.9 Type 2 diabetes mellitus without complications; K74.60 Unspecified cirrhosis of liver; Z79.899 Other long term (current) drug therapy; Z88.8 Allergy status to other drugs, medicaments and biological substances; Z88.6 Allergy status to analgesic agent
CPT/HCPCS: 66984; V2632

== ENCOUNTER → 2021-12-08 09:50 | Outpatient (CLI) | payer MEDICARE, MEDICAID, SELFPAY ==
--- NOTE | 2021-12-08 09:57 | US_ITS ---
FINAL REPORT CLINICAL HISTORY: LOCIALIZED SWELLING, MASS AND LUMP, NECK-- pt has 2 paLP AREAS FINDINGS: Sonographic images of the right neck were obtained. There is a questionable 7 x 2 mm focus at the site of the clinical abnormality, may represent a minimal lipoma. IMPRESSION: Findings may represent a minimal lipoma. Reviewed, Interpreted and Dictated by Kevin Jimenez MD Transcribed by Kimmy Sal Authenticated by Kevin Jimenez MD on 12/08/2021 01:53:38 PM [facility]
== END ==
PROVIDERS: PCP Nurse Practitioner Family; Visit Provider Nurse Practitioner Family
DX: R22.1 Localized swelling, mass and lump, neck (principal)
CPT/HCPCS: 76536

== ENCOUNTER → 2021-12-29 14:11 | Outpatient (POV) | payer MEDICARE, MEDICAID, SELFPAY ==
[2021-12-29 14:42] VITALS: BP 197/100; PULSE 84; RESP 18; TEMP 36.7; O2SAT 97; BMI 35.2
--- NOTE | 2021-12-29 14:44 | P.CONS_ITS ---
[facility] Pain Management SOAP Note Subjective:: Patient's 60-year-old white female who returns our clinic today for follow-up visit regarding what she describes as constant cervical and left arm pain, numbness, tingling sensation. This is a chronic issue. Patient has had treatment in our clinic in the past for this issue. Mostly, cervical facet blocks and or cervical/trapezius trigger point injections. Patient rates her pain today 4/10. Patient not seeking any treatment at this time. She just 1 to make us aware that this is happening. Objective:: She is awake alert oriented x3. In no acute distress. Flexion-extension cervical spine somewhat guarded secondary to pain. Deep tendon reflexes upper lower extremities normal. Motor strength upper and lower extremities normal. There is no gross sensory deficit. Gait is normal. Assessment:: Generative disc disease cervical spine multilevels. Cervical radiculopathy. Plan:: Patient will return to see us on an as-needed basis. She is not interested in any intervention at this time. [facility] History Medical History: Reports:: Anxiety, Chronic Obstructive Pulmonary Disease (COPD), Hyperlipidemia, Hypertension, Lung Disease, Migraine Denies:: Cancer, Diabetes Mellitus Type 1, Diabetes Mellitus Type 2, Internal Pacemaker, MRSA, Seizures *Have you ever received a pneumonia vaccine?: No *Have you received a flu vaccine this season?: No Other Medical History: Reports: Anemia, Arthritis, Fibromyalgia, Hypothyroidism, Thyroid Disease, Other. Denies: Blood Transfusion Reaction Laterality Cases: Bilateral: Myringotomy (Ear Tubes) Other Surgeries: Yes: Colonoscopy, Hysterectomy-Total, Thyroidectomy, Tubal Ligation, Other. No: Pacemaker Amputation: No Fractures: No - *Social History Smoking Status: Never smoker Tobacco Type: cigarettes # Packs/Day (cigarettes): 1 #Yrs smoked (if former smoker): 20 Alcohol Intake: never Substance Use Type: denies use *Occupational Status:: disabled Housing: house Household Members: spouse *Travel in the last 8 weeks: None - Psychiatric History Pschychiatric History:: Reports:: Anxiety Family Hx:: Cancer, Hypertension, Stroke
== END ==
PROVIDERS: Visit Provider Nurse Anesthetist, Certified Registered
DX: M50.10 Cervical disc disorder with radiculopathy, unspecified cervical region (principal)
CPT/HCPCS: 99212; G0463

== ENCOUNTER → 2022-05-18 12:39 | Outpatient (CLI) | payer MEDICARE, MEDICAID, SELFPAY ==
--- NOTE | 2022-05-18 12:47 | XR_ITS ---
FINAL REPORT CLINICAL HISTORY: RT KNEE PAIN FINDINGS: RIGHT KNEE Three views of the right knee reveal no evidence of fracture or dislocation. The bony alignment is normal. There are mild and moderate degenerative changes, greatest involving the medial compartment. There is no evidence of joint effusion. No localized soft tissue abnormality is identified. IMPRESSION: Degenerative change with no acute abnormality identified. Reviewed, Interpreted and Dictated by Milo Schmidt III, MD Transcribed by Bambi Willams Authenticated and [facility]
== END ==
PROVIDERS: PCP Nurse Practitioner Family; Visit Provider Nurse Practitioner Family
DX: M25.561 Pain in right knee (principal)
CPT/HCPCS: 73562

== ENCOUNTER → 2022-07-13 15:42 | Outpatient (CLI) | payer MEDICARE, MEDICAID, SELFPAY ==
--- NOTE | 2022-07-13 15:52 | XR_ITS ---
FINAL REPORT CLINICAL HISTORY: LUMBAR DEGENERATIVE DISC DISEASE FINDINGS: LUMBAR SPINE Five views demonstrate no acute fracture. There are mild degenerative changes with small osteophytes. There is no malalignment. IMPRESSION: Mild degenerative changes. Reviewed, Interpreted and Dictated by Milo Schmidt III, MD Transcribed by Kimmy Sal Authenticated and [facility]
== END ==
PROVIDERS: PCP Nurse Practitioner Family; Visit Provider Nurse Practitioner Family
DX: M51.36 Other intervertebral disc degeneration, lumbar region (principal)
CPT/HCPCS: 72110

== ENCOUNTER → 2022-07-22 13:12 | Outpatient (CLI) | payer MEDICARE, MEDICAID, SELFPAY ==
--- NOTE | 2022-07-22 13:16 | MR_ITS ---
FINAL REPORT CLINICAL HISTORY: LUMBAR DEGENERATIVE DISC DISEASE lbp x 1 week FINDINGS: Multiplanar MR imaging of the lumbar spine was performed without contrast. On the sagittal T2-weighted images, disc degeneration is seen at multiple levels. There is endplate change at multiple levels. There is a hemangioma in L1. The vertebral alignment is normal. There is no evidence of fracture. The conus has an unremarkable appearance. T12-L1: There is no significant central canal stenosis or neural foraminal narrowing. L1-2: An annular bulge is present. L2-3: There is an annular bulge, facet arthropathy and vertebral osteophytes. There is a small central disc protrusion. There is mild left neural foraminal narrowing. L3-4: There is an annular bulge, facet arthropathy and vertebral osteophytes. There is a small central disc protrusion. There is mild bilateral neural foraminal narrowing. L4-5: There is an annular bulge, facet arthropathy and vertebral osteophytes. A central disc protrusion contacts the L5 nerve roots. There is mild right and moderate left neural foraminal narrowing. There is mild central canal stenosis with an AP thecal sac diameter of 9 mm. L5-S1: There is partial sacralization of L5. IMPRESSION: Multilevel degenerative disc disease with areas of neural foraminal narrowing and central canal stenosis. Disc protrusions at L2-L3, L3-L4 and L4-L5. Contact of the L5 nerve roots at L4-L5. Reviewed, Interpreted and Dictated by Milo Schmidt III, MD Transcribed by Adalberto Robbins Authenticated and [facility]
== END ==
PROVIDERS: PCP Nurse Practitioner Family; Visit Provider Nurse Practitioner Family
DX: M51.36 Other intervertebral disc degeneration, lumbar region (principal)
CPT/HCPCS: 72148; 76376

== ENCOUNTER → 2023-05-24 14:04 | Outpatient (POV) | payer MEDICARE, MEDICAID, SELFPAY | PROVIDERS: Visit Provider Dermatology | DX: Z00.00 Encounter for general adult medical examination without abnormal findings (principal) ==

== ENCOUNTER 2024-10-19 14:35 | Emergency (ER) | payer MEDICARE, MEDICAID, SELFPAY ==
--- NOTE | 2024-10-19 15:57 | ED_ITS ---
Discharge Plan Disposition Patient Disposition: Home, Self-Care Condition: Good Prescriptions Prescriptions: New phenazopyridine [Pyridium] 200 mg tablet 200 mg PO Q8H 2 Days Qty: 6 0RF ciprofloxacin-dexamethasone 0.3-0.1 % Drops,Suspension 2 drp Ear-Right BID 7 Days Qty: 1 0RF sulfamethoxazole-trimethoprim [Bactrim DS] 800-160 mg Tablet 1 tab PO BID 7 Days Qty: 20 0RF ondansetron 4 mg Tablet,Disintegrating 4 mg PO Q8H PRN (Reason: Nausea) Qty: 12 0RF meclizine 12.5 mg tablet 12.5 mg PO TID PRN (Reason: dizziness) Qty: 20 0RF No Action amlodipine 2.5 mg tablet 2.5 mg PO DAILY albuterol sulfate 90 mcg/actuation HFA aerosol inhaler 1 puff INHALATION .PRN lisinopril 10 mg tablet 10 mg PO DAILY Duexis 800-26.6 mg tablet 1 tab PO ONCE Ubrelvy 100 mg tablet 100 mg PO ONCE PRN (Reason: migraine) Qty: 10 5RF Rx Instructions: Take one at onset of headache, may repeat once in 2 hours if pain persists. Max dose 200mg in 24 hours or 4 times per week omeprazole 20 MG capsule,delayed release(DR/EC) 20 mg PO DAILY Referrals Follow up/Referrals: Elaine Toney APRN [Primary Care Provider] - See instructions Activity Restrictions/Add. Instructions Additional Instructions/Restrictions: Drink plenty of fluids. Take tylenol or ibuprofen for pain or fever. Take the medications as directed. Follow up with your regular doctor. GO TO THE ER FOR ANY WORSENING SYMPTOMS Use the ear drops (cipro-dex) as directed. The pyridium will make your urine turn orange, this is an expected side effect. It will stain your clothes if it comes into contact with them. We will culture the urine. That will tell what bacteria is causing your infection and which antibiotics will treat it best.This test takes 3 days to complete. The meclizine (medication for dizziness) will make you drowsy, so don't drive or operate heavy machinery after taking it. Clinical Impressions Clinical Impression: UTI (urinary tract infection), Otitis media Instructions Patient Instructions: How to Instill Ear Drops, Urinary Tract Infection, Middle Ear Infection, DI for Urinary Tract Infection (UTI), Meclizine Print Language Print Language: Greek Discharge ED Provider: Richard [place] [facility] [place] General Stated complaint: pain and frequent urination, ear pain Time Seen by Provider: 10/19/24 15:57 Related Data Home Medications ?Medication ?Instructions ?Recorded ?Confirmed albuterol sulfate 90 mcg/actuation 1 puff inhalation .PRN Asthma 10/18/19 12/29/21 aerosol inhaler amlodipine 2.5 mg tablet 2.5 mg PO DAILY bp 10/18/19 12/29/21 ibuprofen 800 mg-famotidine 26.6 1 tab PO ONCE Pain 01/20/21 12/29/21 mg tablet (Duexis) lisinopril 10 mg tablet 10 mg PO DAILY High blood pressure 02/11/21 12/29/21 omeprazole 20 mg capsule,delayed 20 mg PO DAILY GERD 02/24/21 12/29/21 release Previous Rx's ?Medication ?Instructions ?Recorded ubrogepant 100 mg tablet (Ubrelvy) 100 mg PO ONCE PRN migraine #10 03/31/21 tabs ciprofloxacin 0.3 %-dexamethasone 2 drp Ear-Right BID 7 days #1 ea 10/19/24 0.1 % ear drops,suspension meclizine 12.5 mg tablet 12.5 mg PO TID PRN dizziness #20 10/19/24 tabs ondansetron 4 mg disintegrating 4 mg PO Q8H PRN Nausea #12 tabs 10/19/24 tablet phenazopyridine 200 mg tablet 200 mg PO Q8H 2 days #6 tabs 10/19/24 (Pyridium) sulfamethoxazole 800 1 tab PO BID 7 days #20 tabs 10/19/24 mg-trimethoprim 160 mg tablet (Bactrim DS) Allergies Allergy/AdvReac Type Severity Reaction Status Date / Time codeine (CODEINE) Allergy Mild Verified 03/31/21 14:14 amoxicillin Allergy Verified 03/31/21 14:14 clavulanic acid Allergy Verified 03/31/21 14:14 [facility] Disclaimer: The information contained in this section may have been updated after the patient was seen, as this information can be updated by other users. Medical History (Updated 10/19/24 @ 16:48 by Richard Todd, SHADOW GRAPH WEIGHT OPERATOR) Anxiety Urinary tract infection History of gastroesophageal reflux (GERD) Migraine COPD (chronic obstructive pulmonary disease) Asthma Hypertension Surgical History (Updated 10/19/24 @ 16:20 by Honey Francis RN) History of hysterectomy Social History Smoking Status: Never smoker second hand exposure: No alcohol intake: never counseling provided: none substance use type: denies use current occupational status: disabled Travel in the last 8 weeks: None household members: spouse housing: house current occupational exposures/hazards: No caffeine: Yes Have you lived/traveled outside [place] in past 30 days?: No Contact w/someone who lives/traveled outside [place] past 30 days?: No Exposure to someone with infectious disease in past 14 days?: No Do you have a fever (greater than 100.4 F or 38 C)?: No Have you tested positive for COVID-19: No Exposed to someone with COVID-19 in past 14 days?: No Do you have a sore throat?: No Do you have a cough?: No Do you have any weakness?: No Do you have any diarrhea?: No Are you experiencing any unusual bleeding?: No Do you have any muscle aches/pain?: No Do you have any abdominal pain?: Yes Are you experiencing loss of taste or smell?: No ROS Obtained: Yes All systems reviewed & no additional complaints except as documented Constitutional Constitutional: Denies chills, Reports fever(s) and Reports poor appetite Eyes Eyes: Denies eye discharge ENT Ears, Nose, Mouth, and Throat: Denies ear discharge, Reports otalgia, Denies hearing loss, Denies sinus pain and Reports sore throat Cardiovascular Cardiovascular: Denies chest pain and Denies dyspnea Respiratory Respiratory: Denies chest congestion, Reports cough and Denies dyspnea Gastrointestinal Gastrointestingal: Denies abdominal pain, diarrhea, nausea or vomiting Genitourinary Female Genitourinary: Reports as per HPI, Reports dysuria, Reports urinary frequency, Denies urinary incontinence, Denies urinary hesitancy and Reports urinary urgency Musculoskeletal Musculoskeletal: Denies arthralgias Integumentary/Breasts Skin/Breast: Denies rash Physical Exam General General appearance: alert and in no apparent distress Head Head exam: atraumatic, normocephalic and normal inspection Eye Eye exam: Present normal appearance; Absent PERRL or EOMI ENT ENT exam: Present mucous membranes moist and normal external ear exam Expanded ENT Exam TM/Canal exam: Bilateral TM: erythema, bulging and effusion Nose exam: Absent sinus tenderness Nasal speculum exam: Bilateral: normal Mouth exam: Present normal external inspection and other; Absent drooling Teeth exam: Present normal inspection Throat exam: Present tonsillar erythema and tonsillomegaly Neck Neck exam: Present normal inspection, full ROM and trachea midline; Absent tenderness, meningismus or lymphadenopathy Chest Chest inspection: Present normal inspection and symmetric chest wall rise; Absent tenderness Respiratory Respiratory exam: Present normal lung sounds bilaterally; Absent respiratory distress, wheezes or stridor Cardiovascular Cardiovascular exam: Present regular rate, normal rhythm and normal heart sounds; Absent tachycardia or irregular rhythm Abdominal Exam Abdominal exam: Present soft and normal bowel sounds; Absent distention, tenderness, guarding, rebound or rigidity Extremities Exam Extremities exam: Present normal inspection and normal capillary refill; Absent tenderness, joint swelling or calf tenderness Back Exam Back exam: Present normal inspection and full ROM; Absent tenderness, CVA tenderness (R) or CVA tenderness (L) Neurological Exam Neurological exam: Present alert, oriented X3, CN II-XII intact, normal gait and reflexes normal; Absent motor sensory deficit Psychiatric Psychiatric exam: Present normal affect and normal mood Skin Skin exam: Present warm, dry, intact and normal color Lymphatic Lymphatic Findings: no adenopathy Medical Decision Making Medical Records Medical records reviewed: No I reviewed the patient's medical records. Screening: Per USPSTF and CDC recommendations, given the prevalence of disease in our region, it is our hospital?s policy to screen for HIV and viral Hepatitis for all patients aged 18 and over and those with ongoing risk factors. Abner Inquiry Pt receiving controlled substance: No Lab Data Lab results reviewed: Yes I reviewed the patient's lab results.
[2024-10-19 16:05] VITALS: BP 188/112; PULSE 72; RESP 18; TEMP 36.8; O2SAT 95; BMI 33.5
[2024-10-19 16:17] LABS: Apearance,Urine Clear (Clear); Color,Urine Yellow (Yellow)
[2024-10-19 16:18] LABS: Bilirubin,Urine Negative (Negative); Blood, Urine Negative (Negative); Glucose,Urine (UA) Negative (Negative); Ketones,Urine Negative (Negative); PH,Urine 5.5 (5.0-8.5); Protein,Urine Negative (Negative); UTC Leukocyte Esterase,Urine Trace (Negative); UTC Nitrate,Urine Negative (Negative); Urobilinogen,Urine 0.2 EU/dl (0.2)
[2024-10-19 17:00] VITALS: BP 188/112; PULSE 72; RESP 18; TEMP 36.8; O2SAT 95
== END 2024-10-19 17:10 | disposition home or self-care (01) ==
PROVIDERS: Emergency Provider Nurse Practitioner Family; PCP Nurse Practitioner Family
DX: N39.0 Urinary tract infection, site not specified (principal); H66.90 Otitis media, unspecified, unspecified ear
CPT/HCPCS: 81003; 87086; 87804; 99213; G0381

== ENCOUNTER 2025-06-14 15:52 | Outpatient (CLI) | payer MEDICARE, MEDICAID, SELFPAY | END 2025-06-14 23:59 | LOC: LAB.DROPOF 06-17 10:46 | PROVIDERS: PCP Internal Medicine; Visit Provider Internal Medicine | DX: N39.0 Urinary tract infection, site not specified (principal) | CPT/HCPCS: 87086 ==

== ENCOUNTER 2025-06-26 15:32 | Outpatient (CLI) | payer MEDICARE, MEDICAID, SELFPAY ==
[2025-06-26 16:59] LABS: Microscopic, Urine URINE MICROSCOPIC (MICROSCOPIC)
[2025-06-26 17:27] LABS: Hematocrit 41.5 % (37.0-47.0); Hemoglobin 13.9 g/dL (12.2-16.2); Immature Granulocytes % 0.1 %; Mean Corpuscular HGB Conc 33.5 g/dL (31.8-35.4); Mean Corpuscular Hemoglobin 31.6 pg (27.0-31.2); Mean Corpuscular Volume 94.3 fl (81-99); Nucleated Red Blood Cells % 0 %; Platelet Count 261 K/mm3 (142-424); Red Blood Count 4.40 M/mm3 (4.20-5.40); Red Cell Distribution Width-SD 43.6 fL; White Blood Count 8.0 K/mm3 (4.8-10.8)
[2025-06-26 18:41] LABS: Alanine Aminotransferase 23 U/L (12-78); Albumin Level 4.4 g/dl (3.5-5.0); Albumin/Globulin Ratio 1.6 (1.1-1.8); Alkaline Phosphatase 144 U/L (38-126); Anion Gap 15.8 mEq/L (5-15); Aspartate Amino Transferase 29 U/L (14-36); Bilirubin,Total 0.9 mg/dl (0.2-1.3); Blood Urea Nitrogen 15 mg/dl (7-17); Calcium 10.2 mg/dl (8.4-10.2); Carbon Dioxide 27 mmol/L (22.0-30.0); Chloride 100 mmol/L (98-107); Creatinine,Serum 0.80 mg/dl (0.52-1.04); Estimated Glomerular Filt Rate 72 ml/min (>60); GFR (African American) 87 ML/MIN (>60); Globulin 2.8 g/dL (1.3-3.2); Glucose 68 mg/dl (74-100); Potassium 4.8 mmoL/L (3.5-5.1); Sodium 138 mmol/L (136-145); Total Protein,Serum 7.2 g/dl (6.3-8.2)
[2025-06-26 19:13] LABS: Bilirubin,Urine Negative (Negative); Color,Urine YELLOW (Yellow); Glucose,Urine (UA) Negative (Negative); Ketones,Urine Negative (Negative); Leukocyte Esterase,Urine TRACE (Negative); PH,Urine 5.5 (5.0-8.5); Protein,Urine Negative (Negative); Specific Gravity, Urine 1.025 (1.005-1.030); Urobilinogen,Urine 0.2 EU/dl (0.2)
[2025-06-26 21:13] LABS: Bacteria,Urine 2+ /lpf
== END 2025-06-26 23:59 ==
LOC: LAB.DROPOF 06-28 00:02
PROVIDERS: PCP Nurse Practitioner Family; Visit Provider Nurse Practitioner Family
DX: N39.0 Urinary tract infection, site not specified (principal); Z11.4 Encounter for screening for human immunodeficiency virus [HIV]
CPT/HCPCS: 80053; 81001; 85025; 87086; 87389

== ENCOUNTER 2025-07-01 15:58 | Outpatient (CLI) | payer MEDICARE, MEDICAID, SELFPAY | END 2025-07-01 23:59 | disposition home or self-care (01) | LOC: LAB.DROPOF 07-02 15:58 | PROVIDERS: PCP Nurse Practitioner Family; Visit Provider Nurse Practitioner Family | DX: N39.0 Urinary tract infection, site not specified (principal) | CPT/HCPCS: 87086 ==